=== PATIENT | female | born 1945 | race Caucasian/White ===

== ENCOUNTER 2016-06-17 05:53 | Inpatient (IN) | payer MEDICARE, BC ==
[~2016-06-17] VITALS: Ht 160 cm; Wt 70.3 kg
[~2016-06-17 05:53] MED LIST: AZEL137S3 NS; AZIT250T PO; CEFD250S PO; FENT1PAT17 TD; FLUT12HF2; HYDR28.311; HYDR30CR TP; LIDO; LIDO20SO; LINA145C PO; MAGN296S PO; MONT10TA9; MORP15TA PO; OMEP1CAP18 PO; OMEP1CAP25; OMEP20CA9 PO; ONDA4TAB12 PO; ONDA4TAB7 PO; RANI150T6 PO; TEMA15CA6 PO; TEMA30CA PO; TEMA7.5C PO; VENTOLIN HFA18 GM; [UNRECOGNIZED DRUG - CODE]; [UNRECOGNIZED DRUG - OTHER]
--- NOTE | 2016-06-17 06:19 | PHYS DOC ---
Past Medical History Past Medical History: Diverticulitis, High Cholesterol, Other Additional Past Medical Histor: bowel obstructions, colitis, intestinal/bowel adhesions Past Surgical History: Appendectomy, Cholecystectomy, Hysterectomy, Tonsillectomy, Other Additional Past Surgical Histo: bowel resection,c-spinex2,l-spinex4,breast implants and revision Alcohol Use: None Drug Use: None Adult General Chief Complaint Chief Complaint: ABDOMINAL PAIN HPI HPI Patient is a 71 year old female who presents with pain. She states she's had colon surgeries and this feels like her bowel disruption. So yesterday morning as constant abdominal pain with nausea. She states nothing makes the pain better or worse. She called her primary care doctor last night and then placed a fentanyl patch on. She states she became so nauseated that her took the patch off around 4 AM. She presents to ER with and had 200 g of fentanyl in route. Review of Systems Review of Systems Constitutional: Denies fever or chills [] Eyes: Denies change in visual acuity, redness, or eye pain [] HENT: Denies nasal congestion or sore throat [] Respiratory: Denies cough or shortness of breath [] Cardiovascular: No additional information not addressed in HPI [] GI: Denies bloody stools or diarrhea, positive for abdominal pain and nausea : Denies dysuria or hematuria [] Musculoskeletal: Denies back pain or joint pain [] Integument: Denies rash or skin lesions [] Neurologic: Denies headache, focal weakness or sensory changes [] Endocrine: Denies polyuria or polydipsia [] Current Medications Current Medications Current Medications Medications (Trade) Dose Ordered Sig/[facility] Start Time Stop Time Status Last Admin Dose Admin Iohexol (Omnipaque 300 Mg/ml) 75 ml 1X ONCE 06/17/16 08:00 06/17/16 08:01 DC 06/17/16 08:30 75 ML Morphine Sulfate 4 mg 4 mg PRN Q15MIN PRN 06/17/16 07:15 06/18/16 07:14 06/17/16 09:07 4 MG Ondansetron HCl (Zofran) 4 mg 1X ONCE 06/17/16 07:30 06/17/16 07:31 DC 06/17/16 07:23 4 MG Sodium Chloride (Iv Sodium Chloride 0.9% 1000ml Bag) 1,000 ml @ 1,000 mls/hr 1X ONCE 06/17/16 07:15 06/17/16 08:14 DC 06/17/16 07:24 1,000 MLS/HR Allergies Allergies Allergies Coded Allergies Type Severity Reaction Last Updated Verified adhesive Allergy Intermediate 06/27/15 Yes alprazolam Allergy Intermediate 03/14/16 Yes clonazepam Allergy Intermediate 03/14/16 Yes codeine Allergy Intermediate 06/27/15 Yes diazepam Allergy Intermediate 03/14/16 Yes fluoxetine Allergy Intermediate 03/14/16 Yes lorazepam Allergy Intermediate 03/14/16 Yes Sulfa (Sulfonamide Antibiotics) Allergy Unknown 05/04/16 Yes Physical Exam Physical Exam Constitutional: Well developed, well nourished, no acute distress, non-toxic appearance. [] HENT: Normocephalic, atraumatic, bilateral external ears normal, oropharynx moist, no oral exudates, nose normal. [] Eyes: PERRLA, EOMI, conjunctiva normal, no discharge. [] Neck: Normal range of motion, no tenderness, supple, no stridor. [] Cardiovascular:Heart rate regular rhythm, no murmur [] Lungs & Thorax: Bilateral breath sounds clear to auscultation [] Abdomen: Tender to palpation diffusely with increased pain in the right left upper quadrant, hyperactive bowel sounds, no masses, no pulsatile masses. [] Skin: Warm, dry, no erythema, no rash. [] Back: No tenderness, no CVA tenderness. [] Extremities: No tenderness, no cyanosis, no clubbing, ROM intact, no edema. [] Neurologic: Alert and oriented X 3, normal motor function, normal sensory function, no focal deficits noted. [] Psychologic: Affect normal, judgement normal, mood normal. [] Current Patient Data Vital Signs Vital Signs Date Time Temp Pulse Resp B/P Pulse Ox O2 Delivery O2 Flow Rate FiO2 06/17/16 09:07 12 06/17/16 09:00 68 177/79 99 Room Air 06/17/16 05:55 98.1 98.1 Lab Values Laboratory Tests Test 06/17/16 06:12 06/17/16 06:40 White Blood Count 8.5x10^3/uL (4.0-11.0) Red Blood Count 4.74x10^6/uL (3.50-5.40) Hemoglobin 14.4g/dL (12.0-15.5) Hematocrit 42.5% (36.0-47.0) Mean Corpuscular Volume 90fL (79-100) Mean Corpuscular Hemoglobin 30pg (25-35) Mean Corpuscular Hemoglobin Concent 34g/dL (31-37) Red Cell Distribution Width 13.6% (11.5-14.5) Platelet Count 273x10^3/uL (140-400) Neutrophils (%) (Auto) 52% (31-73) Lymphocytes (%) (Auto) 38% (24-48) Monocytes (%) (Auto) 9% (0-9) Eosinophils (%) (Auto) 1% (0-3) Basophils (%) (Auto) 1% (0-3) Neutrophils # (Auto) 4.4x10^3uL (1.8-7.7) Lymphocytes # (Auto) 3.2x10^3/uL (1.0-4.8) Monocytes # (Auto) 0.8x10^3/uL (0.0-1.1) Eosinophils # (Auto) 0.1x10^3/uL (0.0-0.7) Basophils # (Auto) 0.1x10^3/uL (0.0-0.2) Prothrombin Time 13.5SEC (11.7-14.0) Prothrombin Time INR 1.1 (0.8-1.1) PTT 32SEC (24-38) Sodium Level 142mmol/L (136-145) Potassium Level 3.6mmol/L (3.5-5.1) Chloride Level 105mmol/L (98-107) Carbon Dioxide Level 23mmol/L (21-32) Anion Gap 14 (6-14) Blood Urea Nitrogen 10mg/dL (7-20) Creatinine 0.7mg/dL (0.6-1.0) Estimated GFR (Cockcroft-Gault) 82.0 BUN/Creatinine Ratio 14 (6-20) Glucose Level 111mg/dL (70-99) H Calcium Level 9.6mg/dL (8.5-10.1) Total Bilirubin 0.8mg/dL (0.2-1.0) Aspartate Amino Transferase (AST) 24U/L (15-37) Alanine Aminotransferase (ALT) 23U/L (14-59) Alkaline Phosphatase 109U/L (46-116) Creatine Kinase 48U/L (26-192) Creatine Kinase MB (Mass) < 0.5ng/mL (0.0-3.6) Creatine Kinase MB Relative Index % (0-4) Total Protein 7.4g/dL (6.4-8.2) Albumin 3.9g/dL (3.4-5.0) Albumin/Globulin Ratio 1.1 (1.0-1.7) Lipase 90U/L (73-393) Urine Collection Type Unknown Urine Color Yellow Urine Clarity Clear Urine pH 7.0 Urine Specific [place] 1.020 Urine Protein Negativemg/dL (NEG-TRACE) Urine Glucose (UA) Negativemg/dL (NEG) Urine Ketones (Stick) 40mg/dL (NEG) Urine Blood Trace (NEG) Urine Nitrite Negative (NEG) Urine Bilirubin Negative (NEG) Urine Urobilinogen Dipstick 1.0mg/dL (0.2 mg/dL) Urine Leukocyte Esterase Moderate (NEG) Urine RBC 3-5/HPF (0-2) Urine WBC 5-10/HPF (0-4) Urine Squamous Epithelial Cells Few/LPF Urine Bacteria 0/HPF (0-FEW) Urine Mucus Mod/LPF Laboratory Tests 06/17/16 06:12 Laboratory Tests 06/17/16 06:12 EKG EKG [] Radiology/Procedures Radiology/Procedures [facility] [address] [place], [place] [id number] IMAGING REPORT Signed PATIENT: RIKY ALFORD ACCOUNT: [id number] : 1945 LOCATION: ER AGE: 71 SEX: F EXAM STATUS: REG ER ORD. PHYSICIAN: HAO YORK MD REASON: abd pain PROCEDURE: ABD PELV W/ IV CONTRAST ONLY CT of the abdomen and pelvis with contrast, 06/17/2016: History: Abdominal pain Multidetector CT imaging was performed following an IV bolus injection of iodinated contrast material. No oral contrast material was administered for this exam. Comparison is made to a study from 05/03/2016. The gallbladder is surgically absent. Multiple well-defined low density hepatic lesions are again noted compatible with cysts. The pancreas is unremarkable. The spleen is of normal size. There are small bilateral renal cysts. Scarring is again noted along the posterior aspect of the left kidney. No adrenal abnormality is detected. Aortic calcific plaquing is present without evidence of aneurysm. No abdominal or pelvic adenopathy is seen. The uterus is surgically absent. The bowel loops are not dilated. There is evidence of previous bowel surgery. There are a few scattered colonic diverticula. No paracolonic inflammatory process is seen. No free fluid or free air is evident in the abdomen or pelvis. There as been a previous lower lumbar laminectomy and posterior spinal fusion. IMPRESSION: 1. Hepatic and renal cysts. 2. Mild colonic diverticulosis. 3. No acute abdominal or pelvic abnormality is detected. DICTATED and SIGNED BY: ROBINA BOX MD DATE: 06/17/16 0854 CC: PATRICE CHEN MD; HAO YORK MD ~ Impressions: abdominal pain Course & Med Decision Making Course & Med Decision Making Pertinent Labs and Imaging studies reviewed. (See chart for details) CT scan of her abdomen pelvis and labs are nonacute. She has have high-pitched bowel sounds on physical exam. Spoke with Dr. Chen is agreeable to admitting the patient for pain control. I started D5 1/2 normal saline with 20 meq kcl at 100 and hour and wrote morphine in addition to Zofran. Patient is admitted in stable condition at this time. Dragon Disclaimer Dragon Disclaimer This electronic medical record was generated, in whole or in part, using a voice recognition dictation system. Departure Departure Impression: Primary Impression: Intractable abdominal pain Disposition: ADMITTED INPATIENT Admitting Physician: Patrice Chen Referrals: PATRICE CHEN MD (PCP) HAO YORK MD Jun 17, 2016 06:19
[2016-06-17 06:32] LABS: BASO # 0.1 x10^3/uL (0.0-0.2); BASO % 1 % (0-3); EOS % 1 % (0-3); HEMATOCRIT 42.5 % (36.0-47.0); HEMOGLOBIN 14.4 g/dL (12.0-15.5); LYMPH # 3.2 x10^3/uL (1.0-4.8); LYMPH % 38 % (24-48); MEAN CORPUSCULAR HEMOGLOBIN 30 pg (25-35); MEAN CORPUSCULAR HGB CONC 34 g/dL (31-37); MEAN CORPUSCULAR VOLUME 90 fL (79-100); MONO % 9 % (0-9); NEUT % 52 % (31-73); PLATELET COUNT 273 x10^3/uL (140-400); RED BLOOD COUNT 4.74 x10^6/uL (3.50-5.40); RED CELL DISTRIBUTION WIDTH 13.6 % (11.5-14.5); WHITE BLOOD COUNT 8.5 x10^3/uL (4.0-11.0)
[2016-06-17 06:36] LABS: CALCIUM 9.6 mg/dL (8.5-10.1); CREATININE 0.7 mg/dL (0.6-1.0); POTASSIUM 3.6 mmol/L (3.5-5.1)
[2016-06-17 06:41] LABS: INR 1.1 (0.8-1.1); PROTHROMBIN TIME PATIENT 13.5 SEC (11.7-14.0)
[2016-06-17 06:45] LABS: ALBUMIN 3.9 g/dL (3.4-5.0); ALBUMIN/GLOBULIN RATIO 1.1 (1.0-1.7); TOTAL BILIRUBIN 0.8 mg/dL (0.2-1.0); TOTAL PROTEIN 7.4 g/dL (6.4-8.2)
[2016-06-17 06:52] LABS: CKMB MASS < 0.5 ng/mL (0.0-3.6); CREATINE KINASE 48 U/L (26-192)
[2016-06-17 06:53] LABS: BILIRUBIN,URINE NEGATIVE (NEG); GLUCOSE,URINE NEGATIVE (NEG); NITRITE,URINE NEGATIVE (NEG); PROTEIN,URINE NEGATIVE (NEG-TRACE)
--- NOTE | 2016-06-17 07:10 | RAD ---
Abdomen series with chest, 3 views, 06/17/2016: History: Abdominal pain There are surgical clips and sutures in the abdomen and pelvis. Gas is present in large and small bowel in a nonspecific pattern. No free air is seen in the abdomen. There is no evidence of organomegaly. Scattered vascular calcifications are present. There has been a previous lower lumbar spinal fusion. The heart size is normal. There is mild tortuosity of the thoracic aorta. No pulmonary consolidation is seen. There is no evidence of pleural fluid. IMPRESSION: No acute abdominal abnormality is detected.
[2016-06-17 07:12] LABS: BACTERIA,URINE 0 /HPF (0-FEW); SQUAMOUS EPITHELIAL CELL,UR FEW /LPF
[2016-06-17] MEDS ORDERED: IV NORMAL SALINE 1000ML BAG 1,000 ML IV ONE (07:15)
[2016-06-17] MEDS: MORPHINE SULFATE 4 MG/ML DISP.SYRIN. IV/SQ PRN ×3 (07:23→10:53)
[2016-06-17] MEDS ORDERED: ONDANSETRON PF 4 MG/2 ML VIAL. IV ONE (07:30)
[2016-06-17] MEDS ORDERED: IOHEXOL 300 MG/ML 75 ML VIAL IV ONE (08:00)
--- NOTE | 2016-06-17 08:32 | ACF ---
Admission Forms Criteria ABDOMINAL PAIN Clinical Indications for Admission to Inpatient Care (Place 'X' for any and all applicable criteria): Admission is indicated for ANY ONE of the following(1)(2)(3)(4)(5): [X]I. Inpatient admission required rather than observation care (Also use Abdominal Pain: Observation Care, as appropriate) because of ANY ONE of the following: [X]a) Severe pain requiring acute inpatient management [ ]b) Identification of etiology/finding that requires inpatient care (eg, aortic dissection, free air) [ ]c) Absent bowel sounds with complete ileus(6) [ ]d) Suspected toxic megacolon [ ]e) Severe electrolyte abnormalities requiring inpatient care [ ]f) High fever or infection requiring inpatient admission as indicated by ANY ONE of following(7)(8): [ ] i) Appropriate outpatient or observational care antimicrobial treatment unavailable, not effective, or not feasible [ ] ii) Documented bacteremia [ ] iii) Temperature > 104.9 degrees F (oral) [ ] iv) T >103.1 F (oral) or < 96.8 F(rectal) that does not respond to all emergency treatment measures [ ]g) Signs of intestinal obstruction [B] [ ]h) Hemodynamic instability [ ]i) IV fluid to replace significant ongoing losses (greater than 3 L/m2 per day) (12)(13) [ ]j) Percutaneous or open drainage (eg, abscess, biliary tract ) procedures [ ]k) Parenteral nutrition regimen that must be implemented on inpatient basis [ ]l) Other condition,treatment or monitoring requiring inpatient admission. [ ]II. Peritoneal signs present [ ]III. Surgery needed that cannot be performed on an ambulatory basis. [ ]IV. Evaluation requires patient to not eat or drink for extended period ( eg, more than 24 hours). [ ]V. Contraindications and/or Inappropriate clinical situations for Observational Care in patients with abdominal pain, when ANY ONE of the following is required: [ ]a) Thorough evaluation is required to prevent catastrophic events due to delays in diagnosing (e.g.Mesenteric ischemia) 1,3 [ ]b) Patient with severe pathology or with chronic symptoms unlikely to improve in the ED stay (3) [ ]. General contraindications and/or Inappropriate clinical situations for Observational Care in patients with abdominal pain, when ANY ONE of the following is required: [ ]a) Prediction of prolongation of LOS based on ANY ONE of the following may be considered as a contraindication for observational care 2, 3, 4, 5, 6, 7, 8, 9, 10, 11 [ ]i) Age > 65 yrs. [ ]ii) Patient arriving by ambulance [ ]iii) Patient with high acuity [ ]iv) Patient requiring vital sign monitoring [ ]v) Patient on IV medication [ ]b) Systolic blood pressures 180mmHg 3,12 [ ]c) Patient with altered mental status including delirium and other alteration of consciousness, (3) [ ]d) Patient whose discharge disposition will be to a custodial home or rehabilitation home should not be managed in Emergency Department Observation Unit. CMS rule requires 3 days hospital stay before such placement.3,13 [ ]e) Patient with failure to thrive due to broad array of etiologies 3,16,17 [ ]f) Inability to ambulate 3,14 Extended stay beyond goal length of stay may be needed for(2)(3): [ ]a) Persistent abdominal pain with suspected intra-abdominal process [ ]b) Diagnosed condition requiring continued stay (e.g., pancreatitis, complicated diverticulitis) [ ]c) Surgery (e.g., colectomy) The original [facility] content created by [employer] has been revised. The portions of the content which have been revised are identified through the use of italic text or in bold, and [email or web address] has neither reviewed nor approved the modified material.All other unmodified content is copyright [facility]. Please see references footnoted in the original [facility] edition 2016 Admission Criteria Met?: Yes ASHWINI MCCULLOUGH Jun 17, 2016 08:31
--- NOTE | 2016-06-17 09:04 | RAD ---
CT of the abdomen and pelvis with contrast, 06/17/2016: History: Abdominal pain Multidetector CT imaging was performed following an IV bolus injection of iodinated contrast material. No oral contrast material was administered for this exam. Comparison is made to a study from 05/03/2016. The gallbladder is surgically absent. Multiple well-defined low density hepatic lesions are again noted compatible with cysts. The pancreas is unremarkable. The spleen is of normal size. There are small bilateral renal cysts. Scarring is again noted along the posterior aspect of the left kidney. No adrenal abnormality is detected. Aortic calcific plaquing is present without evidence of aneurysm. No abdominal or pelvic adenopathy is seen. The uterus is surgically absent. The bowel loops are not dilated. There is evidence of previous bowel surgery. There are a few scattered colonic diverticula. No paracolonic inflammatory process is seen. No free fluid or free air is evident in the abdomen or pelvis. There as been a previous lower lumbar laminectomy and posterior spinal fusion. IMPRESSION: 1. Hepatic and renal cysts. 2. Mild colonic diverticulosis. 3. No acute abdominal or pelvic abnormality is detected.
[2016-06-17] MEDS ORDERED: POTASSIUM CL 20MEQ D5-0.45NACL 1,000 ML IV ONE (10:00)
[2016-06-17] MEDS: ONDANSETRON PF 4 MG/2 ML VIAL. IV PRN (10:52)
[2016-06-17 11:30] VITALS: BP 165/68
[2016-06-17] MEDS ORDERED: PROCHLORPERAZINE 10 MG/2 ML VIAL. IV PRN (12:45)
[2016-06-17] MEDS: MORPHINE SULFATE 4 MG/ML DISP.SYRIN. IV PRN ×2 (12:48→19:59)
[2016-06-17 15:00] VITALS: BP 117/63
[2016-06-17 19:00] VITALS: BP 140/63
[2016-06-17 23:00] VITALS: BP 133/67
[2016-06-17] MEDS: POTASSIUM CL 20MEQ D5-0.45NACL 1,000 ML IV SCH (23:22)
[2016-06-18 03:13] VITALS: BP 123/68
[2016-06-18 05:40] LABS: BASO # 0.1 x10^3/uL (0.0-0.2); BASO % 1 % (0-3); EOS % 1 % (0-3); HEMATOCRIT 38.4 % (36.0-47.0); HEMOGLOBIN 12.8 g/dL (12.0-15.5); LYMPH # 2.6 x10^3/uL (1.0-4.8); LYMPH % 35 % (24-48); MEAN CORPUSCULAR HEMOGLOBIN 30 pg (25-35); MEAN CORPUSCULAR HGB CONC 33 g/dL (31-37); MEAN CORPUSCULAR VOLUME 91 fL (79-100); MONO % 10 % (0-9); NEUT % 54 % (31-73); PLATELET COUNT 248 x10^3/uL (140-400); RED BLOOD COUNT 4.24 x10^6/uL (3.50-5.40); RED CELL DISTRIBUTION WIDTH 13.4 % (11.5-14.5); WHITE BLOOD COUNT 7.7 x10^3/uL (4.0-11.0)
[2016-06-18] MEDS: MORPHINE SULFATE 4 MG/ML DISP.SYRIN. IV PRN ×5 (05:54→23:09)
[2016-06-18 06:22] LABS: ALBUMIN 3.3 g/dL (3.4-5.0); ALBUMIN/GLOBULIN RATIO 0.9 (1.0-1.7); CREATININE 0.7 mg/dL (0.6-1.0); TOTAL BILIRUBIN 0.5 mg/dL (0.2-1.0); TOTAL PROTEIN 6.8 g/dL (6.4-8.2)
[2016-06-18 07:00] VITALS: BP 137/79
[2016-06-18] MEDS: ONDANSETRON PF 4 MG/2 ML VIAL. IV PRN ×3 (07:42→23:08)
[2016-06-18] MEDS ORDERED: HYDROCORTISONE 2.5% RECTAL CREAM 30GM TUBE. RC PRN (09:15)
--- NOTE | 2016-06-18 09:17 | PDOC ---
PROGRESS NOTES Subjective Subjective Pt awake and pleasant this am. C/o n/v and abd pain. Pt states she is passing gas this am. Objective Objective Pt awake and alert. NAD at rest. VSS. Afebrile. Lungs CTA bilat. Resp even and unlabored. Heart with RRR. No murmurs. Abdomen soft, nondistended, and tender throughout. BS hypoactive consistent with small bowel obstruction. Vital Signs Date Time Temp Pulse Resp B/P Pulse Ox O2 Delivery O2 Flow Rate FiO2 06/18/16 07:00 97.9 68 20 137/79 99 Room Air 97.9 Intake and Output 06/18/16 07:00 Intake Total 1033 ml Output Total 150 ml Balance 883 ml Intake Oral 0 ml Other 1033 ml Output Emesis 150 ml # Voids 1 Assessment Assessment Problems Medical Problems: (1) Intractable abdominal pain Status: Acute Plan Plan of Care 1. Abdominal pain, n/v secondary to with subsequent dehydration -Hx of multiple abd surgeries with hx x2 of lysis of adhesions. -Suspect partial bowel obstruction -Hopeful obstruction will resolve in next day or 2 without surgical intervention -KUB: No acute abdominal abnormality is detected. -CT: 1. Hepatic and renal cysts. 2. Mild colonic diverticulosis. 3. No acute abdominal or pelvic abnormality is detected. -Pain meds and antiemetics -Hydration per IVF -Pt NPO Med hx significant for: History of diverticulosis. History of peptic ulcer disease. Osteoarthritis. Comment Review of Relevant I have reviewed the following items frances (where applicable) has been applied. Labs Laboratory Tests Test 06/17/16 06:12 06/17/16 06:40 06/18/16 04:50 White Blood Count 8.5x10^3/uL (4.0-11.0) 7.7x10^3/uL (4.0-11.0) Red Blood Count 4.74x10^6/uL (3.50-5.40) 4.24x10^6/uL (3.50-5.40) Hemoglobin 14.4g/dL (12.0-15.5) 12.8g/dL (12.0-15.5) Hematocrit 42.5% (36.0-47.0) 38.4% (36.0-47.0) Mean Corpuscular Volume 90fL (79-100) 91fL (79-100) Mean Corpuscular Hemoglobin 30pg (25-35) 30pg (25-35) Mean Corpuscular Hemoglobin Concent 34g/dL (31-37) 33g/dL (31-37) Red Cell Distribution Width 13.6% (11.5-14.5) 13.4% (11.5-14.5) Platelet Count 273x10^3/uL (140-400) 248x10^3/uL (140-400) Neutrophils (%) (Auto) 52% (31-73) 54% (31-73) Lymphocytes (%) (Auto) 38% (24-48) 35% (24-48) Monocytes (%) (Auto) 9% (0-9) 10% (0-9) Eosinophils (%) (Auto) 1% (0-3) 1% (0-3) Basophils (%) (Auto) 1% (0-3) 1% (0-3) Neutrophils # (Auto) 4.4x10^3uL (1.8-7.7) 4.2x10^3uL (1.8-7.7) Lymphocytes # (Auto) 3.2x10^3/uL (1.0-4.8) 2.6x10^3/uL (1.0-4.8) Monocytes # (Auto) 0.8x10^3/uL (0.0-1.1) 0.7x10^3/uL (0.0-1.1) Eosinophils # (Auto) 0.1x10^3/uL (0.0-0.7) 0.1x10^3/uL (0.0-0.7) Basophils # (Auto) 0.1x10^3/uL (0.0-0.2) 0.1x10^3/uL (0.0-0.2) Prothrombin Time 13.5SEC (11.7-14.0) Prothromb Time International Ratio 1.1 (0.8-1.1) Activated Partial Thromboplast Time 32SEC (24-38) Sodium Level 142mmol/L (136-145) 142mmol/L (136-145) Potassium Level 3.6mmol/L (3.5-5.1) 4.0mmol/L (3.5-5.1) Chloride Level 105mmol/L (98-107) 108mmol/L (98-107) Carbon Dioxide Level 23mmol/L (21-32) 24mmol/L (21-32) Anion Gap 14 (6-14) 10 (6-14) Blood Urea Nitrogen 10mg/dL (7-20) 7mg/dL (7-20) Creatinine 0.7mg/dL (0.6-1.0) 0.7mg/dL (0.6-1.0) Estimated GFR (Cockcroft-Gault) 82.0 82.0 BUN/Creatinine Ratio 14 (6-20) 10 (6-20) Glucose Level 111mg/dL (70-99) 110mg/dL (70-99) Calcium Level 9.6mg/dL (8.5-10.1) 9.0mg/dL (8.5-10.1) Total Bilirubin 0.8mg/dL (0.2-1.0) 0.5mg/dL (0.2-1.0) Aspartate Amino Transf (AST/SGOT) 24U/L (15-37) 17U/L (15-37) Alanine Aminotransferase (ALT/SGPT) 23U/L (14-59) 20U/L (14-59) Alkaline Phosphatase 109U/L (46-116) 102U/L (46-116) Creatine Kinase 48U/L (26-192) Creatine Kinase MB (Mass) < 0.5ng/mL (0.0-3.6) Creatine Kinase MB Relative Index % (0-4) Total Protein 7.4g/dL (6.4-8.2) 6.8g/dL (6.4-8.2) Albumin 3.9g/dL (3.4-5.0) 3.3g/dL (3.4-5.0) Albumin/Globulin Ratio 1.1 (1.0-1.7) 0.9 (1.0-1.7) Lipase 90U/L (73-393) Urine Collection Type Unknown Urine Color Yellow Urine Clarity Clear Urine pH 7.0 Urine Specific [place] 1.020 Urine Protein Negativemg/dL (NEG-TRACE) Urine Glucose (UA) Negativemg/dL (NEG) Urine Ketones (Stick) 40mg/dL (NEG) Urine Blood Trace (NEG) Urine Nitrite Negative (NEG) Urine Bilirubin Negative (NEG) Urine Urobilinogen Dipstick 1.0mg/dL (0.2 mg/dL) Urine Leukocyte Esterase Moderate (NEG) Urine RBC 3-5/HPF (0-2) Urine WBC 5-10/HPF (0-4) Urine Squamous Epithelial Cells Few/LPF Urine Bacteria 0/HPF (0-FEW) Urine Mucus Mod/LPF Laboratory Tests Test 06/18/16 04:50 White Blood Count 7.7x10^3/uL (4.0-11.0) Red Blood Count 4.24x10^6/uL (3.50-5.40) Hemoglobin 12.8g/dL (12.0-15.5) Hematocrit 38.4% (36.0-47.0) Mean Corpuscular Volume 91fL (79-100) Mean Corpuscular Hemoglobin 30pg (25-35) Mean Corpuscular Hemoglobin Concent 33g/dL (31-37) Red Cell Distribution Width 13.4% (11.5-14.5) Platelet Count 248x10^3/uL (140-400) Neutrophils (%) (Auto) 54% (31-73) Lymphocytes (%) (Auto) 35% (24-48) Monocytes (%) (Auto) 10% (0-9) Eosinophils (%) (Auto) 1% (0-3) Basophils (%) (Auto) 1% (0-3) Neutrophils # (Auto) 4.2x10^3uL (1.8-7.7) Lymphocytes # (Auto) 2.6x10^3/uL (1.0-4.8) Monocytes # (Auto) 0.7x10^3/uL (0.0-1.1) Eosinophils # (Auto) 0.1x10^3/uL (0.0-0.7) Basophils # (Auto) 0.1x10^3/uL (0.0-0.2) Sodium Level 142mmol/L (136-145) Potassium Level 4.0mmol/L (3.5-5.1) Chloride Level 108mmol/L (98-107) Carbon Dioxide Level 24mmol/L (21-32) Anion Gap 10 (6-14) Blood Urea Nitrogen 7mg/dL (7-20) Creatinine 0.7mg/dL (0.6-1.0) Estimated GFR (Cockcroft-Gault) 82.0 BUN/Creatinine Ratio 10 (6-20) Glucose Level 110mg/dL (70-99) Calcium Level 9.0mg/dL (8.5-10.1) Total Bilirubin 0.5mg/dL (0.2-1.0) Aspartate Amino Transf (AST/SGOT) 17U/L (15-37) Alanine Aminotransferase (ALT/SGPT) 20U/L (14-59) Alkaline Phosphatase 102U/L (46-116) Total Protein 6.8g/dL (6.4-8.2) Albumin 3.3g/dL (3.4-5.0) Albumin/Globulin Ratio 0.9 (1.0-1.7) Medications Current Medications Morphine Sulfate 4 mg 4 mg PRN Q15MIN PRN IV/SQ PAIN GREATER THAN 3/10 Last administered on 06/17/16 10:53; Start 06/17/16 at 07:15; Stop 06/18/16 at 07:14 ; Status DC Sodium Chloride (Iv Sodium Chloride 0.9% 1000ml Bag) 1,000 ml @ 1,000 mls/hr 1X ONCE IV Last administered on 06/17/16 07:24; Start 06/17/16 at 07:15; Stop 06/17/16 at 08:14; Status DC Ondansetron HCl (Zofran) 4 mg 1X ONCE IV Last administered on 06/17/16 07:23 ; Start 06/17/16 at 07:30; Stop 06/17/16 at 07:31; Status DC Iohexol (Omnipaque 300 Mg/ml) 75 ml 1X ONCE IV Last administered on 06/17/16 08:30; Start 06/17/16 at 08:00; Stop 06/17/16 at 08:01; Status DC Ondansetron HCl (Zofran) 4 mg PRN Q8HRS PRN IV NAUSEA/VOMITING Last administered on 06/18/16 07:42; Start 06/17/16 at 09:45; Stop 06/18/16 at 09:44 Morphine Sulfate 4 mg 4 mg PRN Q2HR PRN IV PAIN Last administered on 06/18/16 05:54; Start 06/17/16 at 09:45; Stop 06/18/16 at 09:44 Potassium Chloride/Dextrose/ Sod Cl (KCl 20 Meq In D5W-1/2 NS) 1,000 ml @ 100 mls/hr 1X ONCE IV Last administered on 06/17/16 10:53; Start 06/17/16 at 10: 00; Stop 06/17/16 at 19:59; Status DC Prochlorperazine Edisylate 10 mg 10 mg PRN Q6HRS PRN IV NAUSEA/VOMITING Last administered on 06/17/16 12:48; Start 06/17/16 at 12:45 Potassium Chloride/Dextrose/ Sod Cl (KCl 20 Meq In D5W-1/2 NS) 1,000 ml @ 100 mls/hr Q10H IV Last administered on 06/17/16 23:22; Start 06/17/16 at 23:00 Active Scripts Active Reported Temazepam 7.5 Mg Capsule 7.5 Mg PO HS PRN Zegerid 20 Mg Capsule (Omeprazole/Sodium Bicarbonate) 1 Each Capsule 1 Each PO DAILY Ventolin Hfa Inhaler (Albuterol Sulfate) 18 Gm Hfa.aer.ad Proctosol-Hc (Hydrocortisone) 28.35 Gm Cream..g. Lidocaine Hcl Viscous (Lidocaine Hcl) 20 Mg/1 Ml Solution Azelastine Hcl 137 Mcg/0.137 Ml Venetie.pump 2 Venetie NS BID Linzess (Linaclotide) 145 Mcg Capsule 145 Mcg PO DAILY Vitals/I & O Vital Sign - Last 24 Hours 06/17/16 06/17/16 06/17/16 06/17/16 09:07 10:00 10:30 10:53 Pulse 69 67 Resp 12 12 B/P 161/99 151/66 Pulse Ox 98 98 06/17/16 06/17/16 06/17/16 06/17/16 11:30 12:26 12:48 15:00 Temp 97.7 96.6 97.7 96.6 Pulse 67 69 Resp 20 20 B/P 165/68 117/63 Pulse Ox 100 92 O2 Delivery Room Air Room Air Room Air Room Air 06/17/16 06/17/16 06/17/16 06/17/16 19:00 19:59 20:00 23:00 Temp 97.5 97.7 97.5 97.7 Pulse 59 74 Resp 20 B/P 140/63 133/67 Pulse Ox 99 92 O2 Delivery Room Air Room Air Room Air Room Air 06/18/16 06/18/16 06/18/16 06/18/16 03:13 05:54 06:40 07:00 Temp 97.9 97.9 97.9 97.9 Pulse 69 68 Resp B/P 123/68 137/79 Pulse Ox 95 95 95 99 O2 Delivery Room Air Room Air Room Air Room Air Intake and Output 06/17/16 06/17/16 06/18/16 15:00 23:00 07:00 Intake Total 0 ml 1033 ml Output Total 150 ml Balance -150 ml 1033 ml PATRICE JONES MD Jun 18, 2016 09:17
[2016-06-18] MEDS: LINACLOTIDE 145 MCG CAPSULE. PO SCH (09:45)
[2016-06-18] MEDS: SODIUM BICARBONATE 650 MG TABLET. PO SCH (09:45)
[2016-06-18] MEDS: PANTOPRAZOLE 40 MG TABLET. PO SCH (09:45)
[2016-06-18] MEDS: POTASSIUM CL 20MEQ D5-0.45NACL 1,000 ML IV SCH ×2 (09:47→19:45)
--- NOTE | 2016-06-18 10:06 | HP ---
ADMIT DATE: 06/17/2016 HISTORY OF PRESENT ILLNESS: This is a 71-year-old female who is well known to me from followup in the clinic as well as multiple hospitalizations in the recent past. The patient presented to the Emergency Room on the date of admission with complaints of intractable abdominal pain, nausea and vomiting. The patient stated that her symptoms began 2 days prior to presenting to the Emergency Room and gradually worsened. The patient did try to control her pain with fentanyl patch at home after contacting me oncreema. The patient stated that the fentanyl patch made her nauseated that she had to remove the patch. Upon examination in the Emergency Room, a KUB was obtained and this revealed no acute abdominal abnormality. A CT of the abdomen was also obtained, which revealed hepatic and renal cyst, mild colonic diverticulitis and no acute abdominal or pelvic abnormality was detected. Laboratory findings revealed a WBC of 7.7, hemoglobin of 12.8. Sodium and potassium were within normal limits. Chloride was mildly elevated at 108. All other labs were relatively within normal limits. A UA was obtained and showed moderate leukocytes; however, no nitrites were detected. The urine also had trace blood. The patient was admitted to the hospital for pain control. PAST MEDICAL HISTORY: The patient has a significant history for recurrent intractable abdominal pain. The patient has undergone lysis x 2 of abdominal adhesions. She is a significant history for gastroesophageal reflux disease, diverticulitis, irritable bowel syndrome, appendectomy, cholecystectomy, surgery for small-bowel obstruction as mentioned above. She also has a history of hysterectomy, oophorectomy, kidney stones, recurrent UTIs, arthritis, back pain, neck pain, previous history of TIA, headaches, anxiety and depression. FAMILY HISTORY: Significant for GERD, cardiac disease, gallbladder disease and Alzheimer's. SOCIAL HISTORY: She does not drink alcohol or use drugs. She is a nonsmoker. MEDICATIONS: Medications were brought with the patient, listed on the computer and have been addressed. ALLERGIES: She is allergic to CODEINE AND ADHESIVES, SULFA, ALPRAZOLAM, CLONAZEPAM, CODEINE, DIAZEPAM, FLUOXETINE, AND LORAZEPAM. REVIEW OF SYSTEMS: As mentioned above. PHYSICAL EXAMINATION: GENERAL: She is a well-developed and well-nourished female, who is anxious occurring throughout the examination this morning due to her abdominal pain. HEENT: Head, eyes, ears, nose and throat are unremarkable. NECK: Supple, without lymphadenopathy or thyromegaly. CHEST: Clear to auscultation and percussion. HEART: Regular rate and rhythm without S3, S4 or murmur. ABDOMEN: Reveals diffusely tenderness with guarding and peritoneal signs and symptoms. Bowel sounds are hypoactive, which is consistent with small-bowel obstruction, no thyromegaly or masses are palpable. EXTREMITIES: Without cyanosis, clubbing or edema. NEUROLOGIC: She is intact. IMPRESSION: Severe abdominal pain with nausea, vomiting, suspect small-bowel obstruction. PLAN: The patient has been admitted. Pain will be controlled with the IV morphine, IV hydration and nausea medicine will be given p.r.n. We will hold off on GI and surgical consult and hopes that the small-bowel obstruction will clear within a few days. The patient will remain n.p.o. during that time. The patient will be monitored, managed and treated appropriately during her hospitalization. PATRICE JONES MD DR: LOYDA/asim JOB#: [id number] / [id number]
[2016-06-18 11:00] VITALS: BP 146/76
[2016-06-18 15:00] VITALS: BP 132/76
[2016-06-18 19:00] VITALS: BP 154/82
[2016-06-18 22:51] VITALS: BP 151/87
[2016-06-18] MEDS: TEMAZEPAM 7.5 MG CAPSULE PO PRN (23:09)
[2016-06-19 03:00] VITALS: BP 111/76
[2016-06-19] MEDS: POTASSIUM CL 20MEQ D5-0.45NACL 1,000 ML IV SCH ×3 (05:00→22:44)
[2016-06-19 07:00] VITALS: BP 118/67
[2016-06-19] MEDS: SODIUM BICARBONATE 650 MG TABLET. PO SCH (08:26)
[2016-06-19] MEDS: PANTOPRAZOLE 40 MG TABLET. PO SCH (08:27)
[2016-06-19] MEDS: LINACLOTIDE 145 MCG CAPSULE. PO SCH (08:27)
--- NOTE | 2016-06-19 09:37 | PDOC ---
PROGRESS NOTES Subjective Subjective Pt awake and pleasant this am. States she had 2 diarrhea stools last evening/ night. States she is beginning to feel better and has an appetite this am. Objective Objective Pt awake and alert. NAD at rest. VSS. Afebrile. Abdomen soft, nondistended, remains tender to palpation throughout. BS+x4. Vital Signs Date Time Temp Pulse Resp B/P Pulse Ox O2 Delivery O2 Flow Rate FiO2 06/19/16 08:00 Room Air 06/19/16 03:00 98.0 67 19 111/76 92 98.0 Intake and Output 06/19/16 07:00 Intake Total 5011 ml Balance 5011 ml Intake Oral 0 ml IV Total 2000 ml Other 3011 ml # Voids 3 Assessment Assessment Problems Medical Problems: (1) Abdominal pain Status: Acute (2) Intractable abdominal pain Status: Acute Plan Plan of Care 1. Abdominal pain, n/v secondary to with subsequent dehydration -Hx of multiple abd surgeries with hx x2 of lysis of adhesions. -Suspect partial bowel obstruction -Hopeful obstruction will resolve in next day or 2 without surgical intervention -KUB: No acute abdominal abnormality is detected. -CT: 1. Hepatic and renal cysts. 2. Mild colonic diverticulosis. 3. No acute abdominal or pelvic abnormality is detected. -Pain meds and antiemetics -Hydration per IVF -Pt NPO, advance diet as tolerated today. Med hx significant for: History of diverticulosis. History of peptic ulcer disease. Osteoarthritis. If pt tolerates diet today, hopeful for Dc this afternoon or tomorrow am. Comment Review of Relevant I have reviewed the following items frances (where applicable) has been applied. Labs Laboratory Tests Test 06/18/16 04:50 White Blood Count 7.7x10^3/uL (4.0-11.0) Red Blood Count 4.24x10^6/uL (3.50-5.40) Hemoglobin 12.8g/dL (12.0-15.5) Hematocrit 38.4% (36.0-47.0) Mean Corpuscular Volume 91fL (79-100) Mean Corpuscular Hemoglobin 30pg (25-35) Mean Corpuscular Hemoglobin Concent 33g/dL (31-37) Red Cell Distribution Width 13.4% (11.5-14.5) Platelet Count 248x10^3/uL (140-400) Neutrophils (%) (Auto) 54% (31-73) Lymphocytes (%) (Auto) 35% (24-48) Monocytes (%) (Auto) 10% (0-9) Eosinophils (%) (Auto) 1% (0-3) Basophils (%) (Auto) 1% (0-3) Neutrophils # (Auto) 4.2x10^3uL (1.8-7.7) Lymphocytes # (Auto) 2.6x10^3/uL (1.0-4.8) Monocytes # (Auto) 0.7x10^3/uL (0.0-1.1) Eosinophils # (Auto) 0.1x10^3/uL (0.0-0.7) Basophils # (Auto) 0.1x10^3/uL (0.0-0.2) Sodium Level 142mmol/L (136-145) Potassium Level 4.0mmol/L (3.5-5.1) Chloride Level 108mmol/L (98-107) Carbon Dioxide Level 24mmol/L (21-32) Anion Gap 10 (6-14) Blood Urea Nitrogen 7mg/dL (7-20) Creatinine 0.7mg/dL (0.6-1.0) Estimated GFR (Cockcroft-Gault) 82.0 BUN/Creatinine Ratio 10 (6-20) Glucose Level 110mg/dL (70-99) Calcium Level 9.0mg/dL (8.5-10.1) Total Bilirubin 0.5mg/dL (0.2-1.0) Aspartate Amino Transf (AST/SGOT) 17U/L (15-37) Alanine Aminotransferase (ALT/SGPT) 20U/L (14-59) Alkaline Phosphatase 102U/L (46-116) Total Protein 6.8g/dL (6.4-8.2) Albumin 3.3g/dL (3.4-5.0) Albumin/Globulin Ratio 0.9 (1.0-1.7) Microbiology 06/17/16 Urine Culture - Final, Complete 06/17/16 Urine Culture Result 1 (MARYLIN) - Final, Complete Medications Current Medications Morphine Sulfate 4 mg 4 mg PRN Q15MIN PRN IV/SQ PAIN GREATER THAN 3/10 Last administered on 06/17/16t 10:53; Start 06/17/16 at 07:15; Stop 06/18/16 at 07:14 ; Status DC Sodium Chloride (Iv Sodium Chloride 0.9% 1000ml Bag) 1,000 ml @ 1,000 mls/hr 1X ONCE IV Last administered on 06/17/16 07:24; Start 06/17/16 at 07:15; Stop 06/17/16 at 08:14; Status DC Ondansetron HCl (Zofran) 4 mg 1X ONCE IV Last administered on 06/17/16 07:23 ; Start 06/17/16 at 07:30; Stop 06/17/16 at 07:31; Status DC Iohexol (Omnipaque 300 Mg/ml) 75 ml 1X ONCE IV Last administered on 06/17/16 08:30; Start 06/17/16 at 08:00; Stop 06/17/16 at 08:01; Status DC Ondansetron HCl (Zofran) 4 mg PRN Q8HRS PRN IV NAUSEA/VOMITING Last administered on 06/18/16 07:42; Start 06/17/16 at 09:45; Stop 06/18/16 at 09:44 ; Status DC Morphine Sulfate 4 mg 4 mg PRN Q2HR PRN IV PAIN Last administered on 06/18/16 05:54; Start 06/17/16 at 09:45; Stop 06/18/16 at 09:44; Status DC Potassium Chloride/Dextrose/ Sod Cl (KCl 20 Meq In D5W-1/2 NS) 1,000 ml @ 100 mls/hr 1X ONCE IV Last administered on 06/17/16 10:53; Start 06/17/16 at 10: 00; Stop 06/17/16 at 19:59; Status DC Prochlorperazine Edisylate 10 mg 10 mg PRN Q6HRS PRN IV NAUSEA/VOMITING Last administered on 06/17/16 12:48; Start 06/17/16 at 12:45 Potassium Chloride/Dextrose/ Sod Cl (KCl 20 Meq In D5W-1/2 NS) 1,000 ml @ 100 mls/hr Q10H IV Last administered on 06/19/16 05:00; Start 06/17/16 at 23:00 Hydrocortisone (Proctosol-Hc) 1 dre PRN BID PRN RC RECTAL PAIN; Start 06/18/16 at 09:15 Linaclotide (Linzess) 145 mcg DAILY PO Last administered on 06/19/16 08:27; Start 06/18/16 at 10:00 Temazepam (Restoril) 7.5 mg PRN QHS PRN PO INSOMNIA Last administered on 23:09; Start 06/18/16 at 09:15 Pantoprazole Sodium (Protonix) 40 mg DAILYAC PO Last administered on 06/19/16 08:27; Start 06/18/16 at 10:00 Sodium Bicarbonate (Sodium Bicarbonate) 1,300 mg DAILY PO Last administered on 06/19/16 08:26; Start 06/18/16 at 10:00 Morphine Sulfate 4 mg PRN Q2HR PRN IV PAIN Last administered on 06/18/16 23:09 ; Start 06/18/16 at 13:45 Ondansetron HCl (Zofran) 4 mg PRN Q6HRS PRN IV NAUSEA/VOMITING Last administered on 06/18/16 23:08; Start 06/18/16 at 13:45 Active Scripts Active Reported Temazepam 7.5 Mg Capsule 7.5 Mg PO HS PRN Zegerid 20 Mg Capsule (Omeprazole/Sodium Bicarbonate) 1 Each Capsule 1 Each PO DAILY Ventolin Hfa Inhaler (Albuterol Sulfate) 18 Gm Hfa.aer.ad Proctosol-Hc (Hydrocortisone) 28.35 Gm Cream..g. Lidocaine Hcl Viscous (Lidocaine Hcl) 20 Mg/1 Ml Solution Azelastine Hcl 137 Mcg/0.137 Ml [place].pump 2 [place] NS BID Linzess (Linaclotide) 145 Mcg Capsule 145 Mcg PO DAILY Vitals/I & O Vital Sign - Last 24 Hours 06/18/16 06/18/16 06/18/16 06/18/16 11:00 13:56 15:00 17:09 Temp 97.7 97.9 97.7 97.9 Pulse 64 69 Resp 20 20 B/P 146/76 132/76 Pulse Ox 95 97 O2 Delivery Room Air Room Air Room Air Room Air 06/18/16 06/18/16 06/18/16 06/18/16 19:00 19:41 20:00 21:22 Temp 98.0 98.0 Pulse 59 Resp 21 18 B/P 154/82 Pulse Ox 100 100 O2 Delivery Room Air Room Air Room Air 06/18/16 06/18/16 06/18/16 06/19/16 22:51 23:09 23:41 03:00 Temp 98.0 98.0 98.0 98.0 Pulse 58 67 Resp B/P 151/87 111/76 Pulse Ox 97 92 O2 Delivery Room Air Room Air Room Air Room Air 06/19/16 08:00 O2 Delivery Room Air Intake and Output 06/18/16 06/18/16 06/19/16 15:00 23:00 07:00 Intake Total 1000 ml 1000 ml 3011 ml Balance 1000 ml 1000 ml 3011 ml PATRICE JONES MD Jun 19, 2016 09:37
[2016-06-19 11:00] VITALS: BP 140/68
[2016-06-19 15:00] VITALS: BP 132/69
[2016-06-19] MEDS: ONDANSETRON PF 4 MG/2 ML VIAL. IV PRN (16:06)
[2016-06-19] MEDS: MORPHINE SULFATE 4 MG/ML DISP.SYRIN. IV PRN ×3 (16:06→22:43)
[2016-06-19 19:00] VITALS: BP 135/80
[2016-06-19] MEDS: TEMAZEPAM 7.5 MG CAPSULE PO PRN (22:43)
[2016-06-19 23:00] VITALS: BP 148/83
[2016-06-20 03:00] VITALS: BP 128/68
[2016-06-20] MEDS: MORPHINE SULFATE 4 MG/ML DISP.SYRIN. IV PRN ×2 (03:20→05:27)
[2016-06-20 07:00] VITALS: BP 141/74
[2016-06-20] MEDS: PANTOPRAZOLE 40 MG TABLET. PO SCH (08:50)
[2016-06-20] MEDS: SODIUM BICARBONATE 650 MG TABLET. PO SCH (08:50)
[2016-06-20] MEDS: LINACLOTIDE 145 MCG CAPSULE. PO SCH (08:50)
--- NOTE | 2016-06-20 09:34 | PDOC ---
PROGRESS NOTES Subjective Subjective Pt awake and pleasant this am. States pain is significantly improved. Pt tolerating meals without increased nausea. Pt states she continues to have loose stools. Objective Objective Pt awake and alert. NAD. VSS. Afebrile. Lungs CTA bilat. Resp even and unlabored. Heart with RRR. No murmurs. Abdomen soft, nondistended, and nontender. BS+x4. Vital Signs Date Time Temp Pulse Resp B/P Pulse Ox O2 Delivery O2 Flow Rate FiO2 06/20/16 08:07 Room Air 06/20/16 07:00 97.7 63 18 141/74 100 97.7 Intake and Output 06/20/16 07:00 Intake Total 2520 ml Output Total 1100 ml Balance 1420 ml Intake Oral 1420 ml IV Total 1100 ml Output Urine Total 1100 ml Assessment Assessment Problems Medical Problems: (1) Abdominal pain Status: Acute (2) Intractable abdominal pain Status: Acute Plan Plan of Care 1. Abdominal pain, n/v secondary to with subsequent dehydration -Hx of multiple abd surgeries with hx x2 of lysis of adhesions. -Suspect partial bowel obstruction -Hopeful obstruction will resolve in next day or 2 without surgical intervention -KUB: No acute abdominal abnormality is detected. -CT: 1. Hepatic and renal cysts. 2. Mild colonic diverticulosis. 3. No acute abdominal or pelvic abnormality is detected. -Pain meds and antiemetics -Hydration per IVF -Pt NPO, advance diet as tolerated 06/19. Pt tolerating regular diet. Med hx significant for: History of diverticulosis. History of peptic ulcer disease. Osteoarthritis. Dc home today. Regular diet. Activity as tolerated. F/u in our office in 2 weeks ([phone]). Comment Review of Relevant I have reviewed the following items frances (where applicable) has been applied. Labs Microbiology 06/17/16 Urine Culture - Final, Complete 06/17/16 Urine Culture Result 1 (MARYLIN) - Final, Complete Medications Current Medications Morphine Sulfate 4 mg 4 mg PRN Q15MIN PRN IV/SQ PAIN GREATER THAN 3/10 Last administered on 06/17/16t 10:53; Start 06/17/16 at 07:15; Stop 06/18/16 at 07:14 ; Status DC Sodium Chloride (Iv Sodium Chloride 0.9% 1000ml Bag) 1,000 ml @ 1,000 mls/hr 1X ONCE IV Last administered on 06/17/16 07:24; Start 06/17/16 at 07:15; Stop 06/17/16 at 08:14; Status DC Ondansetron HCl (Zofran) 4 mg 1X ONCE IV Last administered on 06/17/16 07:23 ; Start 06/17/16 at 07:30; Stop 06/17/16 at 07:31; Status DC Iohexol (Omnipaque 300 Mg/ml) 75 ml 1X ONCE IV Last administered on 06/17/16 08:30; Start 06/17/16 at 08:00; Stop 06/17/16 at 08:01; Status DC Ondansetron HCl (Zofran) 4 mg PRN Q8HRS PRN IV NAUSEA/VOMITING Last administered on 06/18/16 07:42; Start 06/17/16 at 09:45; Stop 06/18/16 at 09:44 ; Status DC Morphine Sulfate 4 mg 4 mg PRN Q2HR PRN IV PAIN Last administered on 06/18/16 05:54; Start 06/17/16 at 09:45; Stop 06/18/16 at 09:44; Status DC Potassium Chloride/Dextrose/ Sod Cl (KCl 20 Meq In D5W-1/2 NS) 1,000 ml @ 100 mls/hr 1X ONCE IV Last administered on 06/17/16 10:53; Start 06/17/16 at 10: 00; Stop 06/17/16 at 19:59; Status DC Prochlorperazine Edisylate 10 mg 10 mg PRN Q6HRS PRN IV NAUSEA/VOMITING Last administered on 06/17/16 12:48; Start 06/17/16 at 12:45 Potassium Chloride/Dextrose/ Sod Cl (KCl 20 Meq In D5W-1/2 NS) 1,000 ml @ 100 mls/hr Q10H IV Last administered on 06/19/16 22:44; Start 06/17/16 at 23:00 Hydrocortisone (Proctosol-Hc) 1 dre PRN BID PRN RC RECTAL PAIN; Start 06/18/16 at 09:15 Linaclotide (Linzess) 145 mcg DAILY PO Last administered on 06/20/16 08:50; Start 06/18/16 at 10:00 Temazepam (Restoril) 7.5 mg PRN QHS PRN PO INSOMNIA Last administered on 22:43; Start 06/18/16 at 09:15 Pantoprazole Sodium (Protonix) 40 mg DAILYAC PO Last administered on 06/20/16 08:50; Start 06/18/16 at 10:00 Sodium Bicarbonate (Sodium Bicarbonate) 1,300 mg DAILY PO Last administered on 06/20/16 08:50; Start 06/18/16 at 10:00 Morphine Sulfate 4 mg PRN Q2HR PRN IV PAIN Last administered on 06/20/16 05:27 ; Start 06/18/16 at 13:45 Ondansetron HCl (Zofran) 4 mg PRN Q6HRS PRN IV NAUSEA/VOMITING Last administered on 06/19/16 16:06; Start 06/18/16 at 13:45 Active Scripts Active Reported Temazepam 7.5 Mg Capsule 7.5 Mg PO HS PRN Zegerid 20 Mg Capsule (Omeprazole/Sodium Bicarbonate) 1 Each Capsule 1 Each PO DAILY Ventolin Hfa Inhaler (Albuterol Sulfate) 18 Gm Hfa.aer.ad Proctosol-Hc (Hydrocortisone) 28.35 Gm Cream..g. Lidocaine Hcl Viscous (Lidocaine Hcl) 20 Mg/1 Ml Solution Azelastine Hcl 137 Mcg/0.137 Ml [place].pump 2 [place] NS BID Linzess (Linaclotide) 145 Mcg Capsule 145 Mcg PO DAILY Vitals/I & O Vital Sign - Last 24 Hours 06/19/16 06/19/16 06/19/16 06/19/16 11:00 15:00 16:06 19:00 Temp 96.8 97.1 98.0 96.8 97.1 98.0 Pulse 63 73 72 Resp 19 19 20 B/P 140/68 132/69 135/80 Pulse Ox 100 100 99 O2 Delivery Room Air Room Air Room Air 06/19/16 06/19/16 06/19/16 06/19/16 20:00 20:28 22:43 23:00 Temp 98.1 98.1 Pulse 67 Resp 18 18 20 B/P 148/83 Pulse Ox 99 O2 Delivery Room Air Room Air Room Air 06/20/16 06/20/16 06/20/16 06/20/16 03:00 03:20 04:05 05:27 Temp 97.7 97.7 Pulse 76 Resp 20 18 18 B/P 128/68 Pulse Ox 98 99 O2 Delivery Room Air Room Air 06/20/16 06/20/16 06/20/16 05:57 07:00 08:07 Temp 97.7 97.7 Pulse 63 Resp 18 18 B/P 141/74 Pulse Ox 100 O2 Delivery Room Air Room Air Room Air Intake and Output 06/19/16 06/19/16 06/20/16 15:00 23:00 07:00 Intake Total 250 ml 2150 ml 120 ml Output Total 1100 ml Balance 250 ml 1050 ml 120 ml APPL,PATRICE Grant MD Jun 20, 2016 09:34
[2016-06-20] MEDS: POTASSIUM CL 20MEQ D5-0.45NACL 1,000 ML IV SCH (11:00)
[2016-06-20 11:51] VITALS: BP 153/76
--- NOTE | 2016-06-20 13:13 | DS ---
DATE OF DISCHARGE: 06/20/2016 DATE OF DISCHARGE: 06/20/2016 PRIMARY DIAGNOSES: 1. Abdominal pain. 2. Small bowel obstruction. HISTORY OF PRESENT ILLNESS: This is a 71-year-old female who is well known to me from followup in the clinic as well as multiple hospitalizations in the recent past. The patient presented to the Emergency Room on the date of admission with complaints of abdominal pain, nausea and vomiting. The patient stated that her symptoms began 2 days prior to presenting to the ER and had gradually worsened. Upon examination in the Emergency Room, a KUB was obtained as well as a CT. Both of these were relatively within normal limits. Laboratory findings were also within normal limits. The patient was admitted to the hospital secondary to her pain level and for further evaluation of the abdominal pain due to the patient's history of requiring lysis of adhesions. SUMMARY OF STAY: Upon admission, the patient was given Zofran for nausea, morphine for pain. She was started on IV fluids. Her home medications were restarted. Within the first 48 hours, the patient began to have loose watery stools in small amounts. Over the next several days, the patient's pain gradually did resolve as she continued to have loose stools. The patient's pain level also began to subside. On 06/19/2016, the patient's diet was advanced and the patient tolerated this fine without increased nausea or vomiting. The patient was discharged home on a regular diet and activity as tolerated. DISCHARGE MEDICATIONS: Listed on the medical record and have been addressed. FOLLOWUP: The patient is to follow up in our clinic within 2 weeks, sooner as needed. The patient stated understanding of the above discharge summary, denied questions and will follow up in our clinic accordingly. PATRICE JONES MD DR: LOYDA/asim JOB#: [id number] / [id number]
[2016-06-20 15:40] VITALS: BP 125/85
== END 2016-06-20 16:45 | disposition home or self-care (01) | DRG 389 ==
LOC: ER 05:53 → 5 NORTH 09:45
PROVIDERS: ADMIT Family Medicine; ATTEND Family Medicine
DX: K56.60 Unspecified intestinal obstruction (principal); K57.32 Diverticulitis of large intestine without perforation or abscess without bleeding; E78.00 Pure hypercholesterolemia, unspecified; K21.9 Gastro-esophageal reflux disease without esophagitis; K58.9 Irritable bowel syndrome, unspecified; M19.90 Unspecified osteoarthritis, unspecified site; N28.1 Cyst of kidney, acquired; E86.0 Dehydration; Z82.0 Family history of epilepsy and other diseases of the nervous system; Z86.73 Personal history of transient ischemic attack (TIA), and cerebral infarction without residual deficits; Z87.440 Personal history of urinary (tract) infections; Z87.442 Personal history of urinary calculi; Z90.49 Acquired absence of other specified parts of digestive tract; Z90.710 Acquired absence of both cervix and uterus; Z98.1 Arthrodesis status; Z98.82 Breast implant status; Z88.2 Allergy status to sulfonamides; Z88.4 Allergy status to anesthetic agent; Z88.5 Allergy status to narcotic agent; Z88.8 Allergy status to other drugs, medicaments and biological substances
CPT/HCPCS: 36415; 74022; 74177; 80053; 81001; 82553; 83690; 85027; 85610; 85730; 87086; 96361; 96374; 96375; 96376; G0379; J0780; J2270; J2405; J7030; Q9967; 99285-25

== ENCOUNTER 2016-09-20 23:42 | Inpatient (IN) | payer MEDICARE, BC ==
[~2016-09-20] VITALS: Ht 160 cm; Wt 66.8 kg
[2016-09-21] MEDS ORDERED: ONDANSETRON PF 4 MG/2 ML VIAL. IV ONE
[2016-09-21] MEDS ORDERED: IV NORMAL SALINE 1000ML BAG 1,000 ML IV ONE
[2016-09-21] MEDS: MORPHINE SULFATE 4 MG/ML DISP.SYRIN. IV/SQ PRN ×7 (00:01→15:08)
[2016-09-21 00:12] LABS: BASO # 0.1 x10^3/uL (0.0-0.2); BASO % 1 % (0-3); EOS % 1 % (0-3); HEMATOCRIT 43.9 % (36.0-47.0); HEMOGLOBIN 14.9 g/dL (12.0-15.5); LYMPH # 3.7 x10^3/uL (1.0-4.8); LYMPH % 38 % (24-48); MEAN CORPUSCULAR HEMOGLOBIN 31 pg (25-35); MEAN CORPUSCULAR HGB CONC 34 g/dL (31-37); MEAN CORPUSCULAR VOLUME 91 fL (79-100); MONO % 9 % (0-9); NEUT % 51 % (31-73); PLATELET COUNT 239 x10^3/uL (140-400); RED BLOOD COUNT 4.82 x10^6/uL (3.50-5.40); WHITE BLOOD COUNT 9.6 x10^3/uL (4.0-11.0)
[2016-09-21 00:30] LABS: CALCIUM 9.6 mg/dL (8.5-10.1); CREATININE 0.7 mg/dL (0.6-1.0); POTASSIUM 3.5 mmol/L (3.5-5.1)
[2016-09-21 00:36] LABS: ALBUMIN 3.9 g/dL (3.4-5.0); TOTAL BILIRUBIN 0.8 mg/dL (0.2-1.0); TOTAL PROTEIN 7.8 g/dL (6.4-8.2)
--- NOTE | 2016-09-21 00:44 | PHYS DOC ---
Past Medical History Past Medical History: Diverticulitis, High Cholesterol, Other Additional Past Medical Histor: bowel obstructions, colitis, intestinal/bowel adhesions Past Surgical History: Appendectomy, Cholecystectomy, Hysterectomy, Tonsillectomy, Other Additional Past Surgical Histo: bowel resection,c-spinex2,l-spinex4,breast implants and revision Alcohol Use: None Drug Use: None Adult General Chief Complaint Chief Complaint: ABDOMINAL PAIN HPI HPI Patient is a 71 year old female who presents with abdominal pain. The patient reports waking from sleep about 30 minutes prior to arrival with severe epigastric & periumbilical abdominal pain associated with inability to have bowel movement or pass gas. Denies fevers/chills, nausea, vomiting, blood in stools, dysuria. history of colon resection for diverticulitis, lysis of adhesions, multiple previous small bowel resections. Total of 13 abdominal surgeries including appendectomy, cholecystectomy, hysterectomy. PCP is Dr. Chen. Review of Systems Review of Systems Constitutional: Denies fever or chills Eyes: Denies change in visual acuity HENT: Denies nasal congestion or sore throat Respiratory: Denies cough or shortness of breath Cardiovascular: Denies chest pain or edema GI: Reports abdominal pain, constipation, denies nausea, vomiting, bloody stools or diarrhea : Denies dysuria or hematuria Musculoskeletal: Denies back pain or joint pain Integument: Denies rash or skin lesions Neurologic: Denies headache, focal weakness or sensory changes Current Medications Current Medications Current Medications Medications (Trade) Dose Ordered Sig/Clinton Start Time Stop Time Status Last Admin Dose Admin Info (Do NOT chart on this entry -- for MONITORING) 1 each PRN DAILY PRN 09/21/16 00:45 09/23/16 00:44 Iohexol (Omnipaque 300 Mg/ml) 75 ml 1X ONCE 09/21/16 00:45 09/21/16 00:46 DC 09/21/16 00:58 75 ML Morphine Sulfate 4 mg 4 mg PRN Q2HR PRN 09/21/16 02:15 09/22/16 02:14 09/21/16 02:40 4 MG Ondansetron HCl (Zofran) 4 mg PRN Q8HRS PRN 09/21/16 02:15 09/22/16 02:14 Sodium Chloride (Iv Sodium Chloride 0.9% 1000ml Bag) 1,000 ml @ 100 mls/hr Q10H 09/21/16 02:15 09/22/16 02:14 Allergies Allergies Allergies Coded Allergies Type Severity Reaction Last Updated Verified Sulfa (Sulfonamide Antibiotics) Allergy Intermediate 08/28/16 Yes adhesive Allergy Intermediate 06/27/15 Yes alprazolam Allergy Intermediate 03/14/16 Yes clonazepam Allergy Intermediate 03/14/16 Yes codeine Allergy Intermediate 06/27/15 Yes diazepam Allergy Intermediate 03/14/16 Yes fluoxetine Allergy Intermediate 03/14/16 Yes lorazepam Allergy Intermediate 03/14/16 Yes Physical Exam Physical Exam Constitutional: Well developed, well nourished, appears to be in pain. HENT: Normocephalic, atraumatic, bilateral external ears normal, oropharynx moist, nose normal. Eyes: conjunctiva normal, no discharge. Neck: supple, no stridor. Cardiovascular: RRR, no murmurs, no edema. Lungs & Thorax: LCTAB, no wheezing, no respiratory distress. Abdomen: hypoactive bowel sounds, soft, moderate diffuse tenderness with very light palpation, no focal tenderness in any quadrant, voluntary guarding & rebound are present, no masses or pulsatile masses, nondistended. Skin: Warm, dry, no erythema, no rash. Back: No CVA tenderness. Extremities: No tenderness, no edema. Neurologic: Alert and oriented X 3, no focal deficits noted. Psychologic: anxious Current Patient Data Vital Signs Vital Signs Date Time Temp Pulse Resp B/P Pulse Ox O2 Delivery O2 Flow Rate FiO2 09/21/16 02:30 68 174/74 98 Room Air 09/20/16 23:47 98.0 22 98.0 Lab Values Laboratory Tests Test 09/20/16 23:59 09/21/16 00:00 White Blood Count 9.6x10^3/uL (4.0-11.0) Red Blood Count 4.82x10^6/uL (3.50-5.40) Hemoglobin 14.9g/dL (12.0-15.5) Hematocrit 43.9% (36.0-47.0) Mean Corpuscular Volume 91fL (79-100) Mean Corpuscular Hemoglobin 31pg (25-35) Mean Corpuscular Hemoglobin Concent 34g/dL (31-37) Red Cell Distribution Width 14.0% (11.5-14.5) Platelet Count 239x10^3/uL (140-400) Neutrophils (%) (Auto) 51% (31-73) Lymphocytes (%) (Auto) 38% (24-48) Monocytes (%) (Auto) 9% (0-9) Eosinophils (%) (Auto) 1% (0-3) Basophils (%) (Auto) 1% (0-3) Neutrophils # (Auto) 4.9x10^3uL (1.8-7.7) Lymphocytes # (Auto) 3.7x10^3/uL (1.0-4.8) Monocytes # (Auto) 0.8x10^3/uL (0.0-1.1) Eosinophils # (Auto) 0.1x10^3/uL (0.0-0.7) Basophils # (Auto) 0.1x10^3/uL (0.0-0.2) Sodium Level 142mmol/L (136-145) Potassium Level 3.5mmol/L (3.5-5.1) Chloride Level 105mmol/L (98-107) Carbon Dioxide Level 24mmol/L (21-32) Anion Gap 13 (6-14) Blood Urea Nitrogen 9mg/dL (7-20) Creatinine 0.7mg/dL (0.6-1.0) Estimated GFR (Cockcroft-Gault) 82.0 BUN/Creatinine Ratio 13 (6-20) Glucose Level 104mg/dL (70-99) H Lactic Acid Level 1.4mmol/L (0.4-2.0) Calcium Level 9.6mg/dL (8.5-10.1) Total Bilirubin 0.8mg/dL (0.2-1.0) Aspartate Amino Transferase (AST) 19U/L (15-37) Alanine Aminotransferase (ALT) 24U/L (14-59) Alkaline Phosphatase 113U/L (46-116) Troponin I Quantitative < 0.017ng/mL (0.000-0.055) Total Protein 7.8g/dL (6.4-8.2) Albumin 3.9g/dL (3.4-5.0) Albumin/Globulin Ratio 1.0 (1.0-1.7) Lipase 86U/L (73-393) Urine Collection Type U cath Urine Color Yellow Urine Clarity Clear Urine pH 6.0 Urine Specific [place] 1.015 Urine Protein Negativemg/dL (NEG-TRACE) Urine Glucose (UA) Negativemg/dL (NEG) Urine Ketones (Stick) 15mg/dL (NEG) Urine Blood Moderate (NEG) Urine Nitrite Negative (NEG) Urine Bilirubin Negative (NEG) Urine Urobilinogen Dipstick 0.2mg/dL (0.2 mg/dL) Urine Leukocyte Esterase Negative (NEG) Urine RBC 11-20/HPF (0-2) Urine WBC 1-4/HPF (0-4) Urine Squamous Epithelial Cells Occ/LPF Urine Bacteria 0/HPF (0-FEW) Urine Mucus Slight/LPF Laboratory Tests 09/20/16 23:59 Laboratory Tests 09/20/16 23:59 EKG EKG interpreted by me: NSR rate 67, no acute ST/T wave changes, normal intervals, PACs, artifact present.[] Radiology/Procedures Radiology/Procedures PROCEDURE: CT ABD PELV W/ IV CONTRST ONLY PROCEDURE CT abdomen and pelvis with IV contrast 09/21/2016. HISTORY Upper abdominal pain since this morning. Prior colon resection. TECHNIQUE CT images were obtained through the abdomen and pelvis using an infusion of 75 milliliters Omnipaque 300. No oral contrast was given. Exposure: One or more of the following individualized dose reduction techniques were utilized for this exam: 1. Automated exposure control. 2. Adjustment of the mA and/or kV according to patient size. 3. Use of iterative reconstruction technique.Exposure: One or more of the following individualized dose reduction techniques were utilized for this exam: 1. Automated exposure control. 2. Adjustment of the mA and/or kV according to patient size. 3. Use of iterative reconstruction technique.Exposure: One or more of the following individualized dose reduction techniques were utilized for this exam: 1. Automated exposure control. 2. Adjustment of the mA and/or kV according to patient size. 3. Use of iterative reconstruction technique.Exposure: One or more of the following individualized dose reduction techniques were utilized for this exam: 1. Automated exposure control. 2. Adjustment of the mA and/or kV according to patient size. 3. Use of iterative reconstruction technique.Exposure: One or more of the following individualized dose reduction techniques were utilized for this exam: 1. Automated exposure control. 2. Adjustment of the mA and/or kV according to patient size. 3. Use of iterative reconstruction technique.Exposure: One or more of the following individualized dose reduction techniques were utilized for this exam: 1. Automated exposure control. 2. Adjustment of the mA and/or kV according to patient size. 3. Use of iterative reconstruction technique.Exposure: One or more of the following individualized dose reduction techniques were utilized for this exam: 1. Automated exposure control. 2. Adjustment of the mA and/or kV according to patient size. 3. Use of iterative reconstruction technique. COMPARISON 08/25/2016. FINDINGS The lung bases are clear. The liver again shows multiple cysts. No new liver lesion is seen. Spleen appears normal. Both kidneys enhance with contrast. Cysts are present bilaterally. There is probably some scarring in the upper left kidney. No solid mass or obstruction is seen. There is still suggestion of mild soft tissue abnormality adjacent to the head of the pancreas. This has not changed appreciably. It is possible there are some tiny cysts along the margin of the pancreas. No retroperitoneal or mesenteric adenopathy is seen. There is no apparent abdominal soft tissue mass or other inflammatory process. There is no evidence of bowel obstruction. Images through the pelvis show no abnormality of the distal ureters or bladder. The bladder was poorly distended. No pelvic or inguinal adenopathy is seen. Postoperative changes are again shown involving the lower lumbar spine. There is no separate pelvic soft tissue mass or inflammatory process. IMPRESSION No apparent change from the prior study. There is still a slightly indistinct appearance at the pancreatic head, and mild inflammation is possible, although similar findings were present previously. Electronically signed by: Carmel Cabral (Sep 21, 2016 01:25:08) DICTATED and SIGNED BY: CARMLE CABRAL Jr, MD DATE: 09/21/16 0125[] Course & Med Decision Making Course & Med Decision Making Pertinent Labs and Imaging studies reviewed. (See chart for details) The patient presents with abdominal pain. Gave IV fluids, zofran, pain medication. She required numerous doses of IV pain medication with only minimal relief of her symptoms. Labs as above, CT shows no acute abnormality, no evidence of bowel obstruction, stable pancreatic inflammation. The patient does not feel well enough to go home, repeatedly asking, "Why does this keep happening to me? I can't go on like this. What can we do to make this stop?" Discussed with Dr. Chen, who agrees to admit to inpatient status. GI consult placed to Dr. Warner. The patient is admitted in stable condition. [] Dragon Disclaimer Dragon Disclaimer This electronic medical record was generated, in whole or in part, using a voice recognition dictation system. Departure Departure Impression: Primary Impression: Intractable abdominal pain Additional Impression: Essential hypertension Disposition: ADMITTED INPATIENT Admitting Physician: Patrice Chen Condition: STABLE Referrals: PATRICE CHEN MD (PCP) Problem Qualifiers DELANO DOMINGUEZ MD Sep 21, 2016 00:44
[2016-09-21] MEDS ORDERED: IOHEXOL 300 MG/ML 75 ML VIAL IV ONE (00:45)
[2016-09-21] MEDS ORDERED: CONTRAST GIVEN MC PRN (00:45)
[2016-09-21 00:47] LABS: BILIRUBIN,URINE NEGATIVE (NEG); GLUCOSE,URINE NEGATIVE (NEG); NITRITE,URINE NEGATIVE (NEG); PROTEIN,URINE NEGATIVE (NEG-TRACE); UROBILINOGEN,URINE 0.2 mg/dL (0.2 mg/dL)
[2016-09-21 01:13] LABS: BACTERIA,URINE 0 /HPF (0-FEW); SQUAMOUS EPITHELIAL CELL,UR OCC /LPF
--- NOTE | 2016-09-21 01:26 | RAD ---
PROCEDURE CT abdomen and pelvis with IV contrast 09/21/2016. HISTORY Upper abdominal pain since this morning. Prior colon resection. TECHNIQUE CT images were obtained through the abdomen and pelvis using an infusion of 75 milliliters Omnipaque 300. No oral contrast was given. Exposure: One or more of the following individualized dose reduction techniques were utilized for this exam: 1. Automated exposure control. 2. Adjustment of the mA and/or kV according to patient size. 3. Use of iterative reconstruction technique.Exposure: One or more of the following individualized dose reduction techniques were utilized for this exam: 1. Automated exposure control. 2. Adjustment of the mA and/or kV according to patient size. 3. Use of iterative reconstruction technique.Exposure: One or more of the following individualized dose reduction techniques were utilized for this exam: 1. Automated exposure control. 2. Adjustment of the mA and/or kV according to patient size. 3. Use of iterative reconstruction technique.Exposure: One or more of the following individualized dose reduction techniques were utilized for this exam: 1. Automated exposure control. 2. Adjustment of the mA and/or kV according to patient size. 3. Use of iterative reconstruction technique.Exposure: One or more of the following individualized dose reduction techniques were utilized for this exam: 1. Automated exposure control. 2. Adjustment of the mA and/or kV according to patient size. 3. Use of iterative reconstruction technique.Exposure: One or more of the following individualized dose reduction techniques were utilized for this exam: 1. Automated exposure control. 2. Adjustment of the mA and/or kV according to patient size. 3. Use of iterative reconstruction technique.Exposure: One or more of the following individualized dose reduction techniques were utilized for this exam: 1. Automated exposure control. 2. Adjustment of the mA and/or kV according to patient size. 3. Use of iterative reconstruction technique. COMPARISON 08/25/2016. FINDINGS The lung bases are clear. The liver again shows multiple cysts. No new liver lesion is seen. Spleen appears normal. Both kidneys enhance with contrast. Cysts are present bilaterally. There is probably some scarring in the upper left kidney. No solid mass or obstruction is seen. There is still suggestion of mild soft tissue abnormality adjacent to the head of the pancreas. This has not changed appreciably. It is possible there are some tiny cysts along the margin of the pancreas. No retroperitoneal or mesenteric adenopathy is seen. There is no apparent abdominal soft tissue mass or other inflammatory process. There is no evidence of bowel obstruction. Images through the pelvis show no abnormality of the distal ureters or bladder. The bladder was poorly distended. No pelvic or inguinal adenopathy is seen. Postoperative changes are again shown involving the lower lumbar spine. There is no separate pelvic soft tissue mass or inflammatory process. IMPRESSION No apparent change from the prior study. There is still a slightly indistinct appearance at the pancreatic head, and mild inflammation is possible, although similar findings were present previously. Electronically signed by: Germain Cabral (Sep 21, 2016 01:25:08)
[2016-09-21] MEDS: MORPHINE SULFATE 4 MG/ML DISP.SYRIN. IV PRN ×4 (02:40→23:45)
--- NOTE | 2016-09-21 03:11 | ACF ---
Admission Forms Criteria ABDOMINAL PAIN Clinical Indications for Admission to Inpatient Care (Place 'X' for any and all applicable criteria): Admission is indicated for ANY ONE of the following(1)(2)(3)(4)(5): [X]I. Inpatient admission required rather than observation care (Also use Abdominal Pain: Observation Care, as appropriate) because of ANY ONE of the following: [X]a) Severe pain requiring acute inpatient management [ ]b) Identification of etiology/finding that requires inpatient care (eg, aortic dissection, free air) [ ]c) Absent bowel sounds with complete ileus(6) [ ]d) Suspected toxic megacolon [ ]e) Severe electrolyte abnormalities requiring inpatient care [ ]f) High fever or infection requiring inpatient admission as indicated by ANY ONE of following(7)(8): [ ] i) Appropriate outpatient or observational care antimicrobial treatment unavailable, not effective, or not feasible [ ] ii) Documented bacteremia [ ] iii) Temperature > 104.9 degrees F (oral) [ ] iv) T >103.1 F (oral) or < 96.8 F(rectal) that does not respond to all emergency treatment measures [ ]g) Signs of intestinal obstruction [B] [ ]h) Hemodynamic instability [ ]i) IV fluid to replace significant ongoing losses (greater than 3 L/m2 per day) (12)(13) [ ]j) Percutaneous or open drainage (eg, abscess, biliary tract ) procedures [ ]k) Parenteral nutrition regimen that must be implemented on inpatient basis [ ]l) Other condition,treatment or monitoring requiring inpatient admission. [ ]II. Peritoneal signs present [ ]III. Surgery needed that cannot be performed on an ambulatory basis. [ ]IV. Evaluation requires patient to not eat or drink for extended period ( eg, more than 24 hours). [ ]V. Contraindications and/or Inappropriate clinical situations for Observational Care in patients with abdominal pain, when ANY ONE of the following is required: [ ]a) Thorough evaluation is required to prevent catastrophic events due to delays in diagnosing (e.g.Mesenteric ischemia) 1,3 [ ]b) Patient with severe pathology or with chronic symptoms unlikely to improve in the ED stay (3) [ ]. General contraindications and/or Inappropriate clinical situations for Observational Care in patients with abdominal pain, when ANY ONE of the following is required: [ ]a) Prediction of prolongation of LOS based on ANY ONE of the following may be considered as a contraindication for observational care 2, 3, 4, 5, 6, 7, 8, 9, 10, 11 [ ]i) Age > 65 yrs. [ ]ii) Patient arriving by ambulance [ ]iii) Patient with high acuity [ ]iv) Patient requiring vital sign monitoring [ ]v) Patient on IV medication [ ]b) Systolic blood pressures 180mmHg 3,12 [ ]c) Patient with altered mental status including delirium and other alteration of consciousness, (3) [ ]d) Patient whose discharge disposition will be to a [facility] home or rehabilitation home should not be managed in Emergency Department Observation Unit. CMS rule requires 3 days hospital stay before such placement.3,13 [ ]e) Patient with failure to thrive due to broad array of etiologies 3,16,17 [ ]f) Inability to ambulate 3,14 Extended stay beyond goal length of stay may be needed for(2)(3): [ ]a) Persistent abdominal pain with suspected intra-abdominal process [ ]b) Diagnosed condition requiring continued stay (e.g., pancreatitis, complicated diverticulitis) [ ]c) Surgery (e.g., colectomy) The original [facility] content created by [email or web address] has been revised. The portions of the content which have been revised are identified through the use of italic text or in bold, and [facility] has neither reviewed nor approved the modified material.All other unmodified content is copyright [email or web address]. Please see references footnoted in the original [facility] edition 2016 Admission Criteria Met?: Yes MARY MUNOZ Sep 21, 2016 03:11
[2016-09-21 03:45] VITALS: BP 166/84
[2016-09-21] MEDS: IV NORMAL SALINE 1000ML BAG 1,000 ML IV SCH ×3 (03:53→23:46)
[2016-09-21] MEDS ORDERED: SIME125C PO (04:07)
[2016-09-21] MEDS ORDERED: OMEP20CA9 PO (04:07)
[2016-09-21] MEDS ORDERED: ASPI81TA9 PO (04:07)
[2016-09-21] MEDS: ONDANSETRON PF 4 MG/2 ML VIAL. IV PRN ×3 (05:14→23:45)
[2016-09-21 07:47] VITALS: BP 126/75
[2016-09-21] MEDS ORDERED: PNEUMOC CONJ VACC 23-VALENT 0.5 ML VIAL. VAX IM ONE (09:00)
--- NOTE | 2016-09-21 10:19 | PDOC ---
GENERAL General: admitted with severe upper abdominal pain and vomiting with same. vomitus brown and will heme test same. multiple admissions for similar symptoms over last several years with only times of improvement following surgery for lysis of adhesions. will ask for GI and surgery opinion and control symptoms best we can. see dictated H&P. Problems: VITAL SIGNS Vital Signs: Vital Signs Date Time Temp Pulse Resp B/P Pulse Ox O2 Delivery O2 Flow Rate FiO2 09/21/16 08:09 98 Room Air 09/21/16 07:47 97.4 74 18 126/75 97.4 I & O I & O Intake and Output 09/21/16 07:00 Intake Total 1000 ml Balance 1000 ml IV Total 1000 ml # Voids 1 ALLERGIES Allergies: Allergies Coded Allergies Type Severity Reaction Last Updated Verified Sulfa (Sulfonamide Antibiotics) Allergy Intermediate 08/28/16 Yes adhesive Allergy Intermediate 06/27/15 Yes alprazolam Allergy Intermediate 03/14/16 Yes clonazepam Allergy Intermediate 03/14/16 Yes codeine Allergy Intermediate 06/27/15 Yes diazepam Allergy Intermediate 03/14/16 Yes fluoxetine Allergy Intermediate 03/14/16 Yes lorazepam Allergy Intermediate 03/14/16 Yes MEDS Medications: Current Medications Medications (Trade) Dose Ordered Sig/[place] Start Time Stop Time Status Last Admin Dose Admin Info (Do NOT chart on this entry -- for MONITORING) 1 each PRN DAILY PRN 09/21/16 00:45 09/23/16 00:44 Iohexol (Omnipaque 300 Mg/ml) 75 ml 1X ONCE 09/21/16 00:45 09/21/16 00:46 DC 09/21/16 00:58 75 ML Morphine Sulfate 4 mg 4 mg PRN Q2HR PRN 09/21/16 02:15 09/22/16 02:14 09/21/16 05:15 4 MG Ondansetron HCl (Zofran) 4 mg PRN Q8HRS PRN 09/21/16 02:15 09/22/16 02:14 09/21/16 05:14 4 MG Pneumococcal Polyvalent Vaccine (Do NOT chart on this placeholder) 1 each 1X ONCE 09/21/16 17:00 09/21/16 17:01 UNV Pneumococcal Polyvalent Vaccine (Pneumovax 23) 0.5 ml ONCE ONCE 09/21/16 09:00 4/23/17 09:01 DC Sodium Chloride (Iv Sodium Chloride 0.9% 1000ml Bag) 1,000 ml @ 100 mls/hr Q10H 09/21/16 02:15 09/22/16 02:14 09/21/16 03:53 100 MLS/HR LAB Lab: Laboratory Tests Test 09/20/16 23:59 09/21/16 00:00 White Blood Count 9.6x10^3/uL (4.0-11.0) Red Blood Count 4.82x10^6/uL (3.50-5.40) Hemoglobin 14.9g/dL (12.0-15.5) Hematocrit 43.9% (36.0-47.0) Mean Corpuscular Volume 91fL (79-100) Mean Corpuscular Hemoglobin 31pg (25-35) Mean Corpuscular Hemoglobin Concent 34g/dL (31-37) Red Cell Distribution Width 14.0% (11.5-14.5) Platelet Count 239x10^3/uL (140-400) Neutrophils (%) (Auto) 51% (31-73) Lymphocytes (%) (Auto) 38% (24-48) Monocytes (%) (Auto) 9% (0-9) Eosinophils (%) (Auto) 1% (0-3) Basophils (%) (Auto) 1% (0-3) Neutrophils # (Auto) 4.9x10^3uL (1.8-7.7) Lymphocytes # (Auto) 3.7x10^3/uL (1.0-4.8) Monocytes # (Auto) 0.8x10^3/uL (0.0-1.1) Eosinophils # (Auto) 0.1x10^3/uL (0.0-0.7) Basophils # (Auto) 0.1x10^3/uL (0.0-0.2) Sodium Level 142mmol/L (136-145) Potassium Level 3.5mmol/L (3.5-5.1) Chloride Level 105mmol/L (98-107) Carbon Dioxide Level 24mmol/L (21-32) Anion Gap 13 (6-14) Blood Urea Nitrogen 9mg/dL (7-20) Creatinine 0.7mg/dL (0.6-1.0) Estimated GFR (Cockcroft-Gault) 82.0 BUN/Creatinine Ratio 13 (6-20) Glucose Level 104mg/dL (70-99) Lactic Acid Level 1.4mmol/L (0.4-2.0) Calcium Level 9.6mg/dL (8.5-10.1) Total Bilirubin 0.8mg/dL (0.2-1.0) Aspartate Amino Transf (AST/SGOT) 19U/L (15-37) Alanine Aminotransferase (ALT/SGPT) 24U/L (14-59) Alkaline Phosphatase 113U/L (46-116) Troponin I Quantitative < 0.017ng/mL (0.000-0.055) Total Protein 7.8g/dL (6.4-8.2) Albumin 3.9g/dL (3.4-5.0) Albumin/Globulin Ratio 1.0 (1.0-1.7) Lipase 86U/L (73-393) Urine Collection Type U cath Urine Color Yellow Urine Clarity Clear Urine pH 6.0 Urine Specific [place] 1.015 Urine Protein Negativemg/dL (NEG-TRACE) Urine Glucose (UA) Negativemg/dL (NEG) Urine Ketones (Stick) 15mg/dL (NEG) Urine Blood Moderate (NEG) Urine Nitrite Negative (NEG) Urine Bilirubin Negative (NEG) Urine Urobilinogen Dipstick 0.2mg/dL (0.2 mg/dL) Urine Leukocyte Esterase Negative (NEG) Urine RBC 11-20/HPF (0-2) Urine WBC 1-4/HPF (0-4) Urine Squamous Epithelial Cells Occ/LPF Urine Bacteria 0/HPF (0-FEW) Urine Mucus Slight/LPF PATRICE JONES MD Sep 21, 2016 10:19
--- NOTE | 2016-09-21 10:29 | EKG ---
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
[2016-09-21 10:30] VITALS: BP 154/84
[2016-09-21 14:44] VITALS: BP 165/99
--- NOTE | 2016-09-21 15:04 | HP ---
ADMIT DATE: CHIEF COMPLAINT AND HISTORY OF PRESENT ILLNESS: This is a 71-year-old white female who is well known to me from followup in the office. The patient was readmitted for severe abdominal pain with vomiting. This is one of her litany of admissions over the last several years with the only improvement being ____ following lysis of adhesions. CT scanning of the abdomen and pelvis did not show evidence of a small-bowel obstruction. At the time of admission, however, she has had multiple episodes of vomiting, some of it brown, and will need to be heme tested for the same. She started on the morning prior to admission with abdominal pain all day long, increasing in the evening with vomiting starting and eventually presenting to the Emergency Room where she was admitted for symptom control. I am going to ask GI and Surgery, both to see her at this point in time and restart the process over again. PAST MEDICAL HISTORY: Remarkable for recurrent small-bowel obstructions, intestinal adhesions, colitis, diverticulitis, hyperlipidemia. PAST SURGICAL HISTORY: She has had a prior appendectomy, cholecystectomy, hysterectomy, tonsillectomy, C-spine surgery, breast implants with revision. SOCIAL HISTORY: She is nonsmoker, nondrinker, does not use drugs. . Lives at home with her . FAMILY HISTORY: Noncontributory ALLERGIES: Include SULFA, ADHESIVES, ALPRAZOLAM, CLONAZEPAM, CODEINE, DIAZEPAM, FLUOXETINE, LORAZEPAM. MEDICATIONS: Brought with the patient, listed on the computer, and have been addressed. REVIEW OF SYSTEMS: As mentioned above. PHYSICAL EXAMINATION: GENERAL: She is a well-developed, well-nourished white female who appears miserable. VITAL SIGNS: Stable. She is afebrile. HEENT: Remarkable for glasses. NECK: Supple, without ____, or thyromegaly. CHEST: Clear to auscultation and percussion. HEART: Regular rate and rhythm without S3, S4, or murmur. ABDOMEN: Reveals primarily upper abdominal tenderness on palpation without rebound, guarding, organomegaly or masses. EXTREMITIES: Without cyanosis, clubbing or edema. NEUROLOGIC: Intact. She was quite anxious, but understandably so, over how miserable she feels. LABORATORY DATA: Initial labs, and again CT abdomen and pelvis were essentially unremarkable. IMPRESSION: Recurrent abdominal pain as discussed above. PLAN: The patient has been admitted. Nausea, pain will be controlled. Surgery, GI will be asked to see the patient and she will be monitored, managed and treated appropriately. PATRICE JONES MD DR: SRIKANTH/asim JOB#: [id number] / [id number]
--- NOTE | 2016-09-21 15:48 | PDOC ---
Provider Note Provider Note #[id number]--dxyuktm. abd pain, etiology unclear. cont npo ivf today. perhaps clears tomorrow if feeling better. PRICE BOYCE MD Sep 21, 2016 15:48
[2016-09-21] MEDS ORDERED: ONDANSETRON PF 4 MG/2 ML VIAL. IV PRN (16:22)
[2016-09-21] MEDS ORDERED: PNEUMOCOCCAL VAX SCREEN BY RX. MC ONE (17:00)
[2016-09-21 17:54] LABS: NEG OBC GOB NEG; POS OBC GOB POS
[2016-09-21 23:00] VITALS: BP 154/84
--- NOTE | 2016-09-21 23:16 | CONS ---
DATE OF CONSULTATION: 09/21/2016 REQUESTING PHYSICIAN: Dr. Patrice Banerjee PRIMARY CARE PHYSICIAN: Dr. Patrice Chen. REASON FOR CONSULTATION: Abdominal pain. HISTORY OF PRESENT ILLNESS: This is a 71-year-old female who is known to the GI service and Dr. Warner for chronic abdominal pain, thought secondary to abdominal adhesions. She was recently discharged from [facility] within the last month. She reports that she takes Linzess 145 mcg p.r.n. for constipation. She has undergone imaging on 09/20/2016, that showed slightly indistinct appearance of her pancreatic head and mild inflammation. Postoperative changes were seen in the abdomen. Her laboratory studies are unrevealing. She reports that she has abdominal pain from adhesions. PAST MEDICAL HISTORY: 1. Anxiety. 2. Constipation. 3. GERD. 4. Hysterectomy. 5. Cholecystectomy. 6. Appendectomy. 7. Partial SBO with adhesiolysis and bowel resection. 8. Sigmoid resection for diverticulitis. 9. C-spine surgery. 10. L-spine surgery. 11. Breast medication. 12. Meckel diverticulectomy. FAMILY MEDICAL HISTORY: Negative. SOCIAL HISTORY: No tobacco, alcohol or IV drug abuse. REVIEW OF SYSTEMS: A 13-point review of systems was done. It is positive as per HPI and otherwise negative. MEDICATIONS: 1. Morphine. 2. Zofran. PHYSICAL EXAMINATION: VITAL SIGNS: Temperature is 97.6, blood pressure is 154/84, heart rate 66. GENERAL: She is a well-developed, well-nourished female, in no apparent distress. HEENT: Oropharynx is clear. CARDIOVASCULAR: S1, S2. LUNGS: Clear. ABDOMEN: Normoactive bowel sounds, soft, diffusely tender to palpation. EXTREMITIES: No edema. NEUROLOGIC: Awake, alert and oriented x 3. LABORATORY DATA: White blood cell count of 9.6 with a hemoglobin of 14, platelets at 239. Chemistries with normal LFTs. Imaging as per HPI. ASSESSMENT AND PLAN: This is likely secondary to her multiple surgeries and she previously apparently has done well after adhesiolysis. I have discussed with her possibly starting on clear liquid diet. I also have discussed seeing pain management. The patient became quite belligerent. She called her and son into the room. The patient and her began arguing and raised their voices. They began to approach me in a threatening manner. At this point, I exited the room. I explained to them that Dr. Warner will return tomorrow to resume care. Thank you for allowing me to participate in the care of this patient. JOSS WARNER MD DR: BYRON/asim JOB#: [id number] / [id number] PATRICE Delgado MD, SCOTT MD
[2016-09-22 03:00] VITALS: BP 141/74
[2016-09-22] MEDS: MORPHINE SULFATE 4 MG/ML DISP.SYRIN. IV PRN ×5 (03:56→21:33)
[2016-09-22] MEDS: ONDANSETRON PF 4 MG/2 ML VIAL. IV PRN ×4 (03:56→21:33)
--- NOTE | 2016-09-22 04:41 | CONS ---
DATE OF CONSULTATION: 09/21/2016 CHIEF COMPLAINT: Abdominal pain. HISTORY OF PRESENT ILLNESS: The patient is a 71-year-old female who presents with abdominal pain that started yesterday morning. She said the pain began in the periumbilical and epigastric region. It became increasingly worse to the point that it was severe, was not relieved with drinking water, was not relieved with walking. In fact, drinking water seemed to exacerbate her pain. Her pain was constant. It was crampy and sharp in nature. At this point, her pain is improved compared to yesterday, but she still remains fairly tender. The pain was associated with nausea and vomiting. She had a very small bowel movement yesterday and she has not passed gas since. Her history is significant for what sounds like a colectomy for diverticulitis at following additional colectomy by Dr. Irving for what sounds like obstructive symptoms and then most recently within the last year and a half, an exploratory surgery with lysis of adhesions. PAST MEDICAL HISTORY: Hyperlipidemia. PAST SURGICAL HISTORY: 1. Colectomy. 2. Additional colectomy surgery. 3. Cholecystectomy. 4. Lysis of adhesions and appendectomy. 5. Hysterectomy. 6. Tonsillectomy. 7. Spine surgery. SOCIAL HISTORY: She is a nonsmoker, nondrinker. She lives with her who is in the room at the time. FAMILY HISTORY: Noncontributory to this illness. ALLERGIES: 1. SULFA. 2. ADHESIVES. 3. ALPRAZOLAM. 4. CLONAZEPAM. 5. CODEINE. 6. DIAZEPAM. 7. FLUOXETINE. 8. LORAZEPAM. HOME MEDICATIONS: Include: 1. Albuterol. 2. Aspirin. 3. Azelastine. 4. Proctosol. 5. Linzess. 4. Omeprazole. 5. Gas-X. 6. Temazepam. REVIEW OF SYSTEMS: CONSTITUTIONAL: No fevers or chills. EYES: No abrupt loss of vision or double vision. EARS, NOSE, MOUTH AND THROAT: No loss of hearing or ringing in her ears. CARDIOVASCULAR: No chest pain. She has occasionally heart palpitations. RESPIRATORY: No cough or shortness of breath. GASTROINTESTINAL: See HPI. GENITOURINARY: No dysuria or hematuria. HEMATOLOGIC: No easy bleeding or bruising. MUSCULOSKELETAL: No new myalgias or arthralgias. 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 DERMATOLOGIC: No new skin rashes or lesions. PSYCHIATRIC: Denies depression or anxiety. NEUROLOGIC: Denies headaches or seizures. PHYSICAL EXAMINATION: VITAL SIGNS: She is afebrile with a pulse of 66, respiratory rate 18, blood pressure 154/84, O2 sat is 100% on room air. GENERAL: This is a well-developed, well-nourished female who is tearful. PSYCHIATRIC: She is anxious, but she is cooperative. NEUROLOGIC: She has no resting tremor. She can move all 4 extremities without difficulty. She is alert and oriented x 3. EYES: Pupils are round and reactive. Sclerae are nonicteric. HENT: Head is atraumatic. Mucous membranes moist. Face symmetric. NECK: Supple without cervical lymphadenopathy, no supraclavicular lymphadenopathy. CARDIOVASCULAR: Palpation of her left radial pulse reveals left radial pulses 2+ with no pedal edema. Regular rate by palpation. ABDOMEN: Soft. Nonspecific generalized mild tenderness. No rebound, no guarding. She is nondistended. DERMATOLOGIC: The exposed portions of her skin are unremarkable. LABORATORY DATA: Reviewed. White count is normal, hemoglobin is normal. Comprehensive metabolic profile was reviewed, essentially unremarkable. Troponins are normal. Lactate is 1.4, which is normal. UA is negative for nitrites and leukocyte esterase and CT scan report shows it to be essentially an unremarkable CT with no change from previous study on 09/21/2016. ASSESSMENT: 1. Abdominal pain, etiology unclear. No obstructive pattern on CT scan. 2. Multiple previous abdominal operations. 3. Hyperlipidemia. PLAN: At this point, the patient is improving. She has no clear indication for an operation. I would continue to keep her n.p.o. and continue IV fluid hydration. If she continues to feel better, I think a trial of clear liquids is reasonable tomorrow. She may require a Gastrografin small bowel follow through if she continues to have abdominal pain without a clear etiology. Dr. Irving will return tomorrow and I will turn her care over to him. PRICE BOYCE MD DR: LEROY/asim JOB#: [id number] / [id number] PATRICE Delgado MD
[2016-09-22 07:00] VITALS: BP 127/58
[2016-09-22] MEDS: IV NORMAL SALINE 1000ML BAG 1,000 ML IV SCH (10:28)
[2016-09-22 11:00] VITALS: BP 149/67
--- NOTE | 2016-09-22 11:17 | PDOC ---
AKUA PINTO BARGE CAPTAIN 09/22/16 1117: SURGICAL PROGRESS NOTE Subjective reports not feeling well appears anxious pain across upper abdomen n/v ok at this time Vital Signs Vital Signs Date Time Temp Pulse Resp B/P Pulse Ox O2 Delivery O2 Flow Rate FiO2 09/22/16 10:22 18 Room Air 09/22/16 07:00 97.8 69 127/58 100 97.8 I&O Intake and Output 09/22/16 07:00 Intake Total 0 ml Output Total 600 ml Balance -600 ml Intake Oral 0 ml Output Emesis 600 ml # Voids 9 General: Alert, Cooperative, Other (anxious ) Abdomen: Soft, Other (tender epigastric) Labs Laboratory Tests Test 09/20/16 23:59 09/21/16 00:00 09/21/16 16:45 White Blood Count 9.6x10^3/uL (4.0-11.0) Red Blood Count 4.82x10^6/uL (3.50-5.40) Hemoglobin 14.9g/dL (12.0-15.5) Hematocrit 43.9% (36.0-47.0) Mean Corpuscular Volume 91fL (79-100) Mean Corpuscular Hemoglobin 31pg (25-35) Mean Corpuscular Hemoglobin Concent 34g/dL (31-37) Red Cell Distribution Width 14.0% (11.5-14.5) Platelet Count 239x10^3/uL (140-400) Neutrophils (%) (Auto) 51% (31-73) Lymphocytes (%) (Auto) 38% (24-48) Monocytes (%) (Auto) 9% (0-9) Eosinophils (%) (Auto) 1% (0-3) Basophils (%) (Auto) 1% (0-3) Neutrophils # (Auto) 4.9x10^3uL (1.8-7.7) Lymphocytes # (Auto) 3.7x10^3/uL (1.0-4.8) Monocytes # (Auto) 0.8x10^3/uL (0.0-1.1) Eosinophils # (Auto) 0.1x10^3/uL (0.0-0.7) Basophils # (Auto) 0.1x10^3/uL (0.0-0.2) Sodium Level 142mmol/L (136-145) Potassium Level 3.5mmol/L (3.5-5.1) Chloride Level 105mmol/L (98-107) Carbon Dioxide Level 24mmol/L (21-32) Anion Gap 13 (6-14) Blood Urea Nitrogen 9mg/dL (7-20) Creatinine 0.7mg/dL (0.6-1.0) Estimated GFR (Cockcroft-Gault) 82.0 BUN/Creatinine Ratio 13 (6-20) Glucose Level 104mg/dL (70-99) Lactic Acid Level 1.4mmol/L (0.4-2.0) Calcium Level 9.6mg/dL (8.5-10.1) Total Bilirubin 0.8mg/dL (0.2-1.0) Aspartate Amino Transf (AST/SGOT) 19U/L (15-37) Alanine Aminotransferase (ALT/SGPT) 24U/L (14-59) Alkaline Phosphatase 113U/L (46-116) Troponin I Quantitative < 0.017ng/mL (0.000-0.055) Total Protein 7.8g/dL (6.4-8.2) Albumin 3.9g/dL (3.4-5.0) Albumin/Globulin Ratio 1.0 (1.0-1.7) Lipase 86U/L (73-393) Urine Collection Type U cath Urine Color Yellow Urine Clarity Clear Urine pH 6.0 Urine Specific [place] 1.015 Urine Protein Negativemg/dL (NEG-TRACE) Urine Glucose (UA) Negativemg/dL (NEG) Urine Ketones (Stick) 15mg/dL (NEG) Urine Blood Moderate (NEG) Urine Nitrite Negative (NEG) Urine Bilirubin Negative (NEG) Urine Urobilinogen Dipstick 0.2mg/dL (0.2 mg/dL) Urine Leukocyte Esterase Negative (NEG) Urine RBC 11-20/HPF (0-2) Urine WBC 1-4/HPF (0-4) Urine Squamous Epithelial Cells Occ/LPF Urine Bacteria 0/HPF (0-FEW) Urine Mucus Slight/LPF Gastric Fluid Occult Blood Negative (NEG) Laboratory Tests Test 09/21/16 16:45 Gastric Fluid Occult Blood Negative (NEG) Problem List Problems Medical Problems: (1) Abdominal pain Status: Acute (2) Essential hypertension Status: Acute (3) Intractable abdominal pain Status: Acute Assessment/Plan abdominal pain no acute findings will review with Dr Mcfadden Problems: YAJAIRA MCFADDEN MD 09/22/16 1125: SURGICAL PROGRESS NOTE Assessment/Plan pt seen and examined son at bedside dry mouth makes speech a little thick no n/v will offer clears d/w Dr Chen Problems: AKUA PINTO APRN Sep 22, 2016 11:17 YAJAIRA MCFADDEN MD Sep 22, 2016 11:25
--- NOTE | 2016-09-22 13:22 | PDOC ---
Subjective: Subjective: Had abd pain overnight - better now. Tolerating clears w/o n/v. No BM in a few days, wants Lizness. Objective: Vital Signs: Vital Signs Date Time Temp Pulse Resp B/P Pulse Ox O2 Delivery O2 Flow Rate FiO2 09/22/16 11:00 97.9 66 18 149/67 97 Room Air 97.9 Labs: Laboratory Tests Test 09/21/16 16:45 Gastric Fluid Occult Blood Negative Imaging: CT A/P 09/21/16 IMPRESSION No apparent change from the prior study. There is still a slightly indistinct appearance at the pancreatic head, and mild inflammation is possible, although similar findings were present previously. PE: GEN: NAD LUNGS: CTAB anteriorly HEART: RRR ABD: NABS, S/ND, epigastric discomfort NEURO/PSYCH: A & O 3, thick speech A/P: Abdominal pain -chronic -extensive surgical history, h/o adhesions -surgery following Constipation -on Linzess 145mcg QD at home (290mcg caused too much cramping) ---> requests this today -previous colonoscopies, h/o colon polyps GERD, n/v -on PPI at home -previous EGDs Abnormal pancreas on multiple CTs - unchanged Anxiety -- Tolerating clears. Will restart Linzess, PPI. Other per Dr. Warner. PANCHO WILSON Sep 22, 2016 13:22
[2016-09-22 15:00] VITALS: BP 131/56
[2016-09-22] MEDS: PANTOPRAZOLE 40 MG TABLET.DR. PO SCH (15:06)
[2016-09-22] MEDS: LINACLOTIDE 145 MCG CAPSULE. PO SCH (15:06)
[2016-09-22 19:00] VITALS: BP 138/79
--- NOTE | 2016-09-22 20:29 | PDOC ---
GENERAL General: vss and afebrile. awake and alert and distraught over recurrent episodes pain. have discussed negative workup to date. last vomiting early this am and heme negative. GI and surgery help appreciated. continue ivf's, pain and nausea control. Problems: VITAL SIGNS Vital Signs: Vital Signs Date Time Temp Pulse Resp B/P Pulse Ox O2 Delivery O2 Flow Rate FiO2 09/22/16 19:00 98.8 78 18 138/79 96 Room Air 98.8 I & O I & O Intake and Output 09/22/16 07:00 Intake Total 0 ml Output Total 600 ml Balance -600 ml Intake Oral 0 ml Output Emesis 600 ml # Voids 9 ALLERGIES Allergies: Allergies Coded Allergies Type Severity Reaction Last Updated Verified Sulfa (Sulfonamide Antibiotics) Allergy Intermediate 08/28/16 Yes adhesive Allergy Intermediate 06/27/15 Yes alprazolam Allergy Intermediate 03/14/16 Yes clonazepam Allergy Intermediate 03/14/16 Yes codeine Allergy Intermediate 06/27/15 Yes diazepam Allergy Intermediate 03/14/16 Yes fluoxetine Allergy Intermediate 03/14/16 Yes lorazepam Allergy Intermediate 03/14/16 Yes MEDS Medications: Current Medications Medications (Trade) Dose Ordered Sig/Clinton Start Time Stop Time Status Last Admin Dose Admin Info (Do NOT chart on this entry -- for MONITORING) 1 each PRN DAILY PRN 09/21/16 00:45 09/23/16 00:44 Iohexol (Omnipaque 300 Mg/ml) 75 ml 1X ONCE 09/21/16 00:45 09/21/16 00:46 DC 09/21/16 00:58 75 ML Linaclotide (Linzess) 145 mcg DAILY07 09/22/16 14:00 09/22/16 15:06 145 MCG Morphine Sulfate 4 mg 4 mg PRN Q2HR PRN 09/21/16 19:30 09/22/16 17:17 4 MG Ondansetron HCl (Zofran) 4 mg PRN Q4HRS PRN 09/21/16 17:15 09/22/16 17:16 4 MG Pantoprazole Sodium (Protonix) 40 mg DAILYAC 09/22/16 14:00 09/22/16 15:06 40 MG Pneumococcal Polyvalent Vaccine (Do NOT chart on this placeholder) 1 each 1X ONCE 09/21/16 17:00 09/21/16 17:01 UNV Pneumococcal Polyvalent Vaccine (Pneumovax 23) 0.5 ml ONCE ONCE 09/21/16 09:00 09/21/16 09:01 DC Sodium Chloride (Iv Sodium Chloride 0.9% 1000ml Bag) 1,000 ml @ 100 mls/hr Q10H 09/22/16 10:30 09/22/16 10:28 100 MLS/HR PATRICE JONES MD Sep 22, 2016 20:29
[2016-09-22 23:00] VITALS: BP 152/57
[2016-09-23] MEDS: IV NORMAL SALINE 1000ML BAG 1,000 ML IV SCH ×2 (00:52→09:29)
[2016-09-23 03:00] VITALS: BP 109/47
[2016-09-23] MEDS: PANTOPRAZOLE 40 MG TABLET.DR. PO SCH (05:46)
[2016-09-23] MEDS: LINACLOTIDE 145 MCG CAPSULE. PO SCH (05:46)
[2016-09-23 07:00] VITALS: BP 129/70
[2016-09-23] MEDS: ONDANSETRON PF 4 MG/2 ML VIAL. IV PRN (09:41)
--- NOTE | 2016-09-23 10:37 | PDOC ---
Objective: Objective: Reviewed w/ RN - wants to eat and drink but c/o nausea, wants emesis basin, no vomiting. Dr. Chen has previously ordered ADAT, Dr. Irving has recommended more along the lines of NPO w/ ice. Vital Signs: Vital Signs Date Time Temp Pulse Resp B/P Pulse Ox O2 Delivery O2 Flow Rate FiO2 09/23/16 08:00 Room Air 09/23/16 03:00 98.2 71 18 109/47 93 98.2 PE: GEN: NAD NEURO/PSYCH: sleeping, did not awaken A/P: Chronic abdominal pain -extensive surgical history, h/o adhesions -surgery following -constipation on Linzess w/ previous colonoscopy -GERD, n/v on PPI w/ previous EGD Anxiety -- Diet per surgery. Continue same per GI. PANCHO WILSON Sep 23, 2016 10:37
[2016-09-23 11:00] VITALS: BP 133/76
--- NOTE | 2016-09-23 14:20 | PDOC ---
SURGICAL PROGRESS NOTE Subjective she wants to eat says she is feeling better really wants home made soup Vital Signs Vital Signs Date Time Temp Pulse Resp B/P Pulse Ox O2 Delivery O2 Flow Rate FiO2 09/23/16 11:00 98.0 64 20 133/76 95 Room Air 98.0 I&O Intake and Output 09/23/16 07:00 Intake Total 1410 ml Balance 1410 ml Intake Oral 410 ml IV Total 1000 ml # Voids 3 General: Alert, Oriented X3, Cooperative, No acute distress Abdomen: Soft, Other (ND, mild tenderness to upper abdomen ) Labs Laboratory Tests Test 09/21/16 16:45 Gastric Fluid Occult Blood Negative (NEG) Problem List Problems Medical Problems: (1) Abdominal pain Status: Acute (2) Essential hypertension Status: Acute (3) Intractable abdominal pain Status: Acute Assessment/Plan try diet Problems: AKUA PINTO APRN Sep 23, 2016 14:20
[2016-09-23] MEDS: MORPHINE SULFATE 4 MG/ML DISP.SYRIN. IV PRN ×2 (14:38→20:02)
[2016-09-23 15:00] VITALS: BP 146/85
[2016-09-23 19:00] VITALS: BP 180/83
--- NOTE | 2016-09-23 20:39 | PDOC ---
GENERAL General: vss and afebrile. awake and alert. feels she is ready to try some feeding with no vomiting overnight. abdomen less tender. will advance diet as tolerated and follow. Problems: VITAL SIGNS Vital Signs: Vital Signs Date Time Temp Pulse Resp B/P Pulse Ox O2 Delivery O2 Flow Rate FiO2 09/23/16 20:02 20 96 Room Air 09/23/16 15:00 98.0 85 146/85 98.0 I & O I & O Intake and Output 09/23/16 07:00 Intake Total 1410 ml Balance 1410 ml Intake Oral 410 ml IV Total 1000 ml # Voids 3 ALLERGIES Allergies: Allergies Coded Allergies Type Severity Reaction Last Updated Verified Sulfa (Sulfonamide Antibiotics) Allergy Intermediate 08/28/16 Yes adhesive Allergy Intermediate 06/27/15 Yes alprazolam Allergy Intermediate 03/14/16 Yes clonazepam Allergy Intermediate 03/14/16 Yes codeine Allergy Intermediate 06/27/15 Yes diazepam Allergy Intermediate 03/14/16 Yes fluoxetine Allergy Intermediate 03/14/16 Yes lorazepam Allergy Intermediate 03/14/16 Yes MEDS Medications: Current Medications Medications (Trade) Dose Ordered Sig/[place] Start Time Stop Time Status Last Admin Dose Admin Info (Do NOT chart on this entry -- for MONITORING) 1 each PRN DAILY PRN 09/21/16 00:45 09/23/16 00:44 DC Iohexol (Omnipaque 300 Mg/ml) 75 ml 1X ONCE 09/21/16 00:45 09/21/16 00:46 DC 09/21/16 00:58 75 ML Linaclotide (Linzess) 145 mcg DAILY07 09/22/16 14:00 09/23/16 05:46 145 MCG Morphine Sulfate 4 mg 4 mg PRN Q2HR PRN 09/21/16 19:30 09/23/16 20:02 4 MG Ondansetron HCl (Zofran) 4 mg PRN Q4HRS PRN 09/21/16 17:15 09/23/16 09:41 4 MG Pantoprazole Sodium (Protonix) 40 mg DAILYAC 09/22/16 14:00 09/23/16 05:46 40 MG Pneumococcal Polyvalent Vaccine (Do NOT chart on this placeholder) 1 each 1X ONCE 09/21/16 17:00 09/21/16 17:01 UNV Pneumococcal Polyvalent Vaccine (Pneumovax 23) 0.5 ml ONCE ONCE 09/21/16 09:00 09/21/16 09:01 DC Sodium Chloride (Iv Sodium Chloride 0.9% 1000ml Bag) 1,000 ml @ 100 mls/hr Q10H 09/22/16 10:30 09/23/16 09:29 100 MLS/HR PATRICE JONES MD Sep 23, 2016 20:39
[2016-09-23 23:00] VITALS: BP 161/75
[2016-09-24] MEDS: MORPHINE SULFATE 4 MG/ML DISP.SYRIN. IV PRN ×6 (01:42→20:57)
[2016-09-24] MEDS: IV NORMAL SALINE 1000ML BAG 1,000 ML IV SCH ×4 (02:30→22:58)
[2016-09-24 03:00] VITALS: BP 168/73
[2016-09-24 07:45] VITALS: BP 140/77
--- NOTE | 2016-09-24 08:21 | PDOC ---
GENERAL General: vss and afebrile. awake and alert. chest clear and heart regular. abdomen with mild diffuse tenderness. crampy pain this am like she needs to have bm but can' t. didn't eat much yesterday so hopefully will do better with same today. Problems: VITAL SIGNS Vital Signs: Vital Signs Date Time Temp Pulse Resp B/P Pulse Ox O2 Delivery O2 Flow Rate FiO2 09/24/16 03:00 97.9 62 18 168/73 96 Room Air 97.9 I & O I & O Intake and Output 09/24/16 06:59 Intake Total 800 ml Balance 800 ml Intake Oral 800 ml # Voids 6 ALLERGIES Allergies: Allergies Coded Allergies Type Severity Reaction Last Updated Verified Sulfa (Sulfonamide Antibiotics) Allergy Intermediate 08/28/16 Yes adhesive Allergy Intermediate 06/27/15 Yes alprazolam Allergy Intermediate 03/14/16 Yes clonazepam Allergy Intermediate 03/14/16 Yes codeine Allergy Intermediate 06/27/15 Yes diazepam Allergy Intermediate 03/14/16 Yes fluoxetine Allergy Intermediate 03/14/16 Yes lorazepam Allergy Intermediate 03/14/16 Yes MEDS Medications: Current Medications Medications (Trade) Dose Ordered Sig/[place] Start Time Stop Time Status Last Admin Dose Admin Info (Do NOT chart on this entry -- for MONITORING) 1 each PRN DAILY PRN 09/21/16 00:45 09/23/16 00:44 DC Iohexol (Omnipaque 300 Mg/ml) 75 ml 1X ONCE 09/21/16 00:45 09/21/16 00:46 DC 09/21/16 00:58 75 ML Linaclotide (Linzess) 145 mcg DAILY07 09/22/16 14:00 09/23/16 05:46 145 MCG Morphine Sulfate 4 mg 4 mg PRN Q2HR PRN 09/21/16 19:30 09/24/16 01:42 4 MG Ondansetron HCl (Zofran) 4 mg PRN Q4HRS PRN 09/21/16 17:15 09/23/16 09:41 4 MG Pantoprazole Sodium (Protonix) 40 mg DAILYAC 09/22/16 14:00 09/23/16 05:46 40 MG Pneumococcal Polyvalent Vaccine (Do NOT chart on this placeholder) 1 each 1X ONCE 09/21/16 17:00 4/23/17 17:01 UNV Pneumococcal Polyvalent Vaccine (Pneumovax 23) 0.5 ml ONCE ONCE 09/21/16 09:00 09/21/16 09:01 DC Sodium Chloride (Iv Sodium Chloride 0.9% 1000ml Bag) 1,000 ml @ 100 mls/hr Q10H 09/22/16 10:30 09/24/16 04:15 100 MLS/HR PATRICE JONES MD Sep 24, 2016 08:21
[2016-09-24] MEDS: LINACLOTIDE 145 MCG CAPSULE. PO SCH (08:41)
[2016-09-24] MEDS: PANTOPRAZOLE 40 MG TABLET.DR. PO SCH (08:42)
--- NOTE | 2016-09-24 10:38 | PDOC ---
SURGICAL PROGRESS NOTE Subjective asking for solid food had small BM this AM after waking up with "colon cramps" up and about in room Vital Signs Vital Signs Date Time Temp Pulse Resp B/P Pulse Ox O2 Delivery O2 Flow Rate FiO2 09/24/16 09:59 98 Room Air 09/24/16 07:45 97.7 60 18 140/77 97.7 I&O Intake and Output 09/24/16 07:00 Intake Total 800 ml Balance 800 ml Intake Oral 800 ml # Voids 6 PATIENT HAS A LUCIO: No General: Alert, Cooperative, No acute distress Abdomen: Soft Problem List Problems Medical Problems: (1) Abdominal pain Status: Acute (2) Essential hypertension Status: Acute (3) Intractable abdominal pain Status: Acute Assessment/Plan abdominal pain uncertain etiology tolerating full liquids, asking for solid food will advance Problems: YAJAIRA MCFADDEN MD Sep 24, 2016 10:38
[2016-09-24 10:47] VITALS: BP 158/89
--- NOTE | 2016-09-24 12:54 | PDOC ---
Subjective: Subjective: "Really bad day." Wants to eat more. Had "colon cramps" earlier, better after passing gas while sitting on toilet. No stool. No vomiting. Doesn't want anything else for constipation. Objective: Vital Signs: Vital Signs Date Time Temp Pulse Resp B/P Pulse Ox O2 Delivery O2 Flow Rate FiO2 09/24/16 11:50 100 Room Air 09/24/16 10:47 97.9 59 18 158/89 97.9 PE: GEN: NAD, smiling LUNGS: CTAB HEART: RRR ABD: BS+, periumbilical tenderness NEURO/PSYCH: A & O 3 OTHER: RN present A/P: Chronic abdominal pain -extensive surgical history, h/o adhesions -surgery following, plans to advance diet -constipation on Linzess w/ previous colonoscopy ---> refuses other treatments -GERD, n/v on PPI w/ previous EGD -- Seems in better spirits, wants to eat more (orders for GI soft), still has pain. ?proceed w/ CTA - will review w/ Dr. Warner. PANCHO WILSON Sep 24, 2016 12:54
[2016-09-24] MEDS: ONDANSETRON PF 4 MG/2 ML VIAL. IV PRN ×2 (14:31→20:57)
[2016-09-24 14:38] VITALS: BP 169/86
[2016-09-24 19:00] VITALS: BP 174/86
[2016-09-24] MEDS ORDERED: hydrOXYzine PAMOATE 25 MG CAPSULE PO PRN (21:30)
[2016-09-24 23:00] VITALS: BP 176/89
[2016-09-25] MEDS: MORPHINE SULFATE 4 MG/ML DISP.SYRIN. IV PRN ×4 (00:29→22:49)
[2016-09-25 03:00] VITALS: BP 155/75
[2016-09-25 07:00] VITALS: BP 152/73
[2016-09-25] MEDS ORDERED: CONTRAST GIVEN MC PRN (07:15)
[2016-09-25] MEDS ORDERED: IOHEXOL 350 MG/ML 100 ML VIAL. IV ONE (07:15)
[2016-09-25] MEDS: IV NORMAL SALINE 1000ML BAG 1,000 ML IV SCH ×2 (08:52→19:56)
--- NOTE | 2016-09-25 09:25 | PDOC ---
SURGICAL PROGRESS NOTE Subjective feeling better than yesterday wanting to eat Vital Signs Vital Signs Date Time Temp Pulse Resp B/P Pulse Ox O2 Delivery O2 Flow Rate FiO2 09/25/16 07:00 98.1 72 16 152/73 92 Room Air 98.1 I&O Intake and Output 09/25/16 06:59 Intake Total 540 ml Output Total 1400 ml Balance -860 ml Intake Oral 540 ml Output Urine Total 1200 ml Emesis 200 ml # Voids 3 General: Alert, Oriented X3, Cooperative, No acute distress Abdomen: Soft, No tenderness Problem List Problems Medical Problems: (1) Abdominal pain Status: Acute (2) Essential hypertension Status: Acute (3) Intractable abdominal pain Status: Acute Assessment/Plan abdominal pain, unknown etiology possible CTA--has not been able to obtain appropriate IV access Problems: AKUA PINTO APRN Sep 25, 2016 09:25
--- NOTE | 2016-09-25 09:26 | PDOC ---
Subjective: Subjective: "Really bad day yesterday." Pain about the same. Reports vomiting x 2 yesterday, no BM. Frustrated w/ NPO currently w/ planned CTA, mouth is dry, wants to eat. Says she didn't know anyone from Dr. Warner's office was seeing her. (We have seen her all week.) Objective: Objective: Per RN - no IV access for CTA. Vital Signs: Vital Signs Date Time Temp Pulse Resp B/P Pulse Ox O2 Delivery O2 Flow Rate FiO2 09/25/16 07:00 98.1 72 16 152/73 92 Room Air 98.1 PE: GEN: NAD LUNGS: CTAB HEART: RRR ABD: tender NEURO/PSYCH: anxious, frustrated A/P: Chronic abdominal pain, n/v -extensive surgical history, h/o adhesions -constipation and GERD, on Linzess and PPI -- Difficult situation. Despite ongoing n/v and pain, asking to eat, continues w/ frustration/anxiety. Will ask anesthesia to try placing IV, will follow. PANCHO WILSON Sep 25, 2016 09:26
[2016-09-25 11:33] VITALS: BP 170/73
[2016-09-25] MEDS: LINACLOTIDE 145 MCG CAPSULE. PO SCH (12:28)
[2016-09-25] MEDS: PANTOPRAZOLE 40 MG TABLET.DR. PO SCH (12:28)
--- NOTE | 2016-09-25 14:57 | PDOC ---
GENERAL General: vss and afebrile. awake and alert. in process of trying to complete cta abdomen with problems with iv access. better this am with an appetite however. exam stable. continue present. Problems: VITAL SIGNS Vital Signs: Vital Signs Date Time Temp Pulse Resp B/P Pulse Ox O2 Delivery O2 Flow Rate FiO2 09/25/16 11:33 97.9 60 16 170/73 95 Room Air 97.9 I & O I & O Intake and Output 09/25/16 07:00 Intake Total 540 ml Output Total 1400 ml Balance -860 ml Intake Oral 540 ml Output Urine Total 1200 ml Emesis 200 ml # Voids 3 ALLERGIES Allergies: Allergies Coded Allergies Type Severity Reaction Last Updated Verified Sulfa (Sulfonamide Antibiotics) Allergy Intermediate 08/28/16 Yes adhesive Allergy Intermediate 06/27/15 Yes alprazolam Allergy Intermediate 03/14/16 Yes clonazepam Allergy Intermediate 03/14/16 Yes codeine Allergy Intermediate 06/27/15 Yes diazepam Allergy Intermediate 03/14/16 Yes fluoxetine Allergy Intermediate 03/14/16 Yes lorazepam Allergy Intermediate 03/14/16 Yes MEDS Medications: Current Medications Medications (Trade) Dose Ordered Sig/[place] Start Time Stop Time Status Last Admin Dose Admin Hydroxyzine Pamoate (Vistaril) 25 mg PRN Q6HRS PRN 09/24/16 21:30 Info (Do NOT chart on this entry -- for MONITORING) 1 each PRN DAILY PRN 09/25/16 07:15 09/27/16 07:14 Iohexol (Omnipaque 300 Mg/ml) 75 ml 1X ONCE 09/21/16 00:45 09/21/16 00:46 DC 09/21/16 00:58 75 ML Iohexol (Omnipaque 350 Mg/ml) 90 ml 1X ONCE 09/25/16 07:15 09/25/16 07:16 DC 09/25/16 12:09 90 ML Linaclotide (Linzess) 145 mcg DAILY07 09/22/16 14:00 09/25/16 12:28 145 MCG Morphine Sulfate 4 mg 4 mg PRN Q2HR PRN 09/21/16 19:30 09/25/16 00:29 4 MG Ondansetron HCl (Zofran) 4 mg PRN Q4HRS PRN 09/21/16 17:15 09/24/16 20:57 4 MG Pantoprazole Sodium (Protonix) 40 mg DAILYAC 09/22/16 14:00 09/25/16 12:28 40 MG Pneumococcal Polyvalent Vaccine (Do NOT chart on this placeholder) 1 each 1X ONCE 09/21/16 17:00 09/21/16 17:01 UNV Pneumococcal Polyvalent Vaccine (Pneumovax 23) 0.5 ml ONCE ONCE 09/21/16 09:00 09/21/16 09:01 DC Sodium Chloride (Iv Sodium Chloride 0.9% 1000ml Bag) 1,000 ml @ 100 mls/hr Q10H 09/22/16 10:30 09/25/16 08:52 100 MLS/HR PATRICE JONES MD Sep 25, 2016 14:57
[2016-09-25 15:38] VITALS: BP 172/91
[2016-09-25 19:00] VITALS: BP 163/90
[2016-09-25 23:00] VITALS: BP 172/82
[2016-09-26] MEDS: MORPHINE SULFATE 4 MG/ML DISP.SYRIN. IV PRN (02:12)
[2016-09-26 03:00] VITALS: BP 146/77
[2016-09-26] MEDS: IV NORMAL SALINE 1000ML BAG 1,000 ML IV SCH (05:30)
[2016-09-26 07:52] VITALS: BP 139/64
[2016-09-26] MEDS: PANTOPRAZOLE 40 MG TABLET.DR. PO SCH (08:01)
[2016-09-26] MEDS: LINACLOTIDE 145 MCG CAPSULE. PO SCH (08:01)
--- NOTE | 2016-09-26 08:07 | PDOC ---
GENERAL General: vss and afebrile. awake and alert and taking po better. abdomen soft and minimal tenderness this am. could go this pm if does well with GI to finish any testing they want today. Problems: VITAL SIGNS Vital Signs: Vital Signs Date Time Temp Pulse Resp B/P Pulse Ox O2 Delivery O2 Flow Rate FiO2 09/26/16 03:00 97.9 69 18 146/77 97 Room Air 97.9 I & O I & O Intake and Output 09/26/16 06:59 Intake Total 1100 ml Balance 1100 ml Intake Oral 100 ml IV Total 1000 ml # Voids 5 ALLERGIES Allergies: Allergies Coded Allergies Type Severity Reaction Last Updated Verified Sulfa (Sulfonamide Antibiotics) Allergy Intermediate 08/28/16 Yes adhesive Allergy Intermediate 06/27/15 Yes alprazolam Allergy Intermediate 03/14/16 Yes clonazepam Allergy Intermediate 03/14/16 Yes codeine Allergy Intermediate 06/27/15 Yes diazepam Allergy Intermediate 03/14/16 Yes fluoxetine Allergy Intermediate 03/14/16 Yes lorazepam Allergy Intermediate 03/14/16 Yes MEDS Medications: Current Medications Medications (Trade) Dose Ordered Sig/[place] Start Time Stop Time Status Last Admin Dose Admin Hydroxyzine Pamoate (Vistaril) 25 mg PRN Q6HRS PRN 09/24/16 21:30 Info (Do NOT chart on this entry -- for MONITORING) 1 each PRN DAILY PRN 09/25/16 07:15 09/27/16 07:14 Iohexol (Omnipaque 300 Mg/ml) 75 ml 1X ONCE 09/21/16 00:45 09/21/16 00:46 DC 09/21/16 00:58 75 ML Iohexol (Omnipaque 350 Mg/ml) 90 ml 1X ONCE 09/25/16 07:15 09/25/16 07:16 DC 09/25/16 12:09 90 ML Linaclotide (Linzess) 145 mcg DAILY07 09/22/16 14:00 09/26/16 08:01 145 MCG Morphine Sulfate 4 mg 4 mg PRN Q2HR PRN 09/21/16 19:30 09/26/16 02:12 4 MG Ondansetron HCl (Zofran) 4 mg PRN Q4HRS PRN 09/21/16 17:15 09/24/16 20:57 4 MG Pantoprazole Sodium (Protonix) 40 mg DAILYAC 4/24/17 14:00 09/26/16 08:01 40 MG Pneumococcal Polyvalent Vaccine (Do NOT chart on this placeholder) 1 each 1X ONCE 09/21/16 17:00 09/21/16 17:01 UNV Pneumococcal Polyvalent Vaccine (Pneumovax 23) 0.5 ml ONCE ONCE 09/21/16 09:00 09/21/16 09:01 DC Sodium Chloride (Iv Sodium Chloride 0.9% 1000ml Bag) 1,000 ml @ 100 mls/hr Q10H 09/22/16 10:30 09/26/16 05:30 100 MLS/HR PATRICE JONES MD Sep 26, 2016 08:07
--- NOTE | 2016-09-26 10:07 | PDOC ---
Subjective: Subjective: Less pain, liquid stools, tolerating PO w/o n/v. Asks what else can be done. Discussed PICC for CTA. Unsure she wants to do CTA. Wants to leave today. Objective: Objective: IV access problematic yesterday - placed by anesthesia, then infiltrated. D/w RN - pt was unhappy, asking to eat. Possible DC today. Vital Signs: Vital Signs Date Time Temp Pulse Resp B/P Pulse Ox O2 Delivery O2 Flow Rate FiO2 09/26/16 08:00 Room Air 09/26/16 07:52 97.9 64 18 139/64 98 97.9 PE: GEN: NAD, nearly empty breakfast tray LUNGS: CTAB HEART: RRR ABD: some epigastric/RUQ discomfort NEURO/PSYCH: A & O 3, less anxious A/P: Chronic abdominal pain, n/v - improved -extensive surgical history, h/o adhesions -constipation and GERD, on Linzess and PPI -- CTA cancelled w/ no IV access, pt requesting to eat yesterday. Unsure she wants to proceed w/ this currently. Okay to DC per GI. PANCHO WILSON Sep 26, 2016 10:07
[2016-09-26 10:40] VITALS: BP 151/86
--- NOTE | 2016-09-26 14:30 | PDOC ---
SURGICAL PROGRESS NOTE Subjective tolerating diet no pain right now plans to go home, she is nervous Vital Signs Vital Signs Date Time Temp Pulse Resp B/P Pulse Ox O2 Delivery O2 Flow Rate FiO2 09/26/16 10:40 97.7 69 18 151/86 98 Room Air 97.7 I&O Intake and Output 09/26/16 07:00 Intake Total 1100 ml Balance 1100 ml Intake Oral 100 ml IV Total 1000 ml # Voids 5 General: Alert, Oriented X3, Cooperative, No acute distress Abdomen: Soft, No tenderness Problem List Problems Medical Problems: (1) Abdominal pain Status: Acute (2) Essential hypertension Status: Acute (3) Intractable abdominal pain Status: Acute Assessment/Plan abdominal pain improved plans to dc home Problems: AKUA PINTO SEED COLLECTOR Sep 26, 2016 14:30
[2016-09-26 14:59] VITALS: BP 180/86
[2016-09-26] MEDS ORDERED: SIMETHICONE 80 MG TAB.CHEW PO PRN (15:15)
[2016-09-26] MEDS ORDERED: LINACLOTIDE 145 MCG CAPSULE. PO SCH (16:00)
[2016-09-26] MEDS ORDERED: ASPIRIN ENTERIC COATED 81 MG TABLET.DR. PO SCH (16:00)
[2016-09-26] MEDS ORDERED: AZELASTINE NASAL SPRAY 30ML BOTTLE. NS SCH (21:00)
[2016-09-27] MEDS ORDERED: NON FORMULARY ITEM (Omeprazole 1 CAP) PO SCH (09:00)
== END 2016-09-26 17:34 | disposition home or self-care (01) | DRG 390 ==
LOC: ER 23:42 → 5 NORTH 09-21 01:48
PROVIDERS: ADMIT Family Medicine; ATTEND Family Medicine
DX: K56.5 Intestinal adhesions [bands] with obstruction (postinfection) (principal); K58.1 Irritable bowel syndrome with constipation; F41.9 Anxiety disorder, unspecified; E78.5 Hyperlipidemia, unspecified; E78.00 Pure hypercholesterolemia, unspecified; G89.29 Other chronic pain; I10 Essential (primary) hypertension; K21.9 Gastro-esophageal reflux disease without esophagitis; Z90.49 Acquired absence of other specified parts of digestive tract; Z86.010 Personal history of colon polyps; Z98.82 Breast implant status; Z88.5 Allergy status to narcotic agent; Z88.2 Allergy status to sulfonamides; Z88.8 Allergy status to other drugs, medicaments and biological substances; Z90.710 Acquired absence of both cervix and uterus
CPT/HCPCS: 36415; 74177; 80053; 81001; 82271; 83605; 83690; 84484; 85027; 93005; 96361; 96374; J2270; J2405; J7030; Q9967; 99285-25

== ENCOUNTER 2017-11-18 00:11 | Emergency (ER) | payer MEDICARE, BC ==
[2017-11-18] MEDS: IV NORMAL SALINE 500ML BAG 500 ML IV (01:26)
[2017-11-18] MEDS: MORPHINE SULFATE 10 MG/ML VIAL. IV (01:27)
[2017-11-18 01:54] LABS: ADD MAN DIFF? NO
[2017-11-18 01:56] LABS: BASO % 0 % (0-3); EOS % 0 % (0-3); HEMATOCRIT 32.9 % (36.0-47.0); HEMOGLOBIN 11.7 g/dL (12.0-15.5); LYMPH # 1.5 x10^3/uL (1.0-4.8); LYMPH % 19 % (24-48); MEAN CORPUSCULAR HEMOGLOBIN 32 pg (25-35); MEAN CORPUSCULAR HGB CONC 36 g/dL (31-37); MEAN CORPUSCULAR VOLUME 90 fL (79-100); MONO # 0.6 x10^3/uL (0.0-1.1); MONO % 7 % (0-9); NEUT # 5.9 x10^3uL (1.8-7.7); NEUT % 74 % (31-73); PLATELET COUNT 203 x10^3/uL (140-400); RED BLOOD COUNT 3.64 x10^6/uL (3.50-5.40); RED CELL DISTRIBUTION WIDTH 13.4 % (11.5-14.5)
[2017-11-18 02:10] LABS: ALBUMIN 2.6 g/dL (3.4-5.0); ALK PHOS 75 U/L (46-116); ALT (SGPT) 17 U/L (14-59); ANION GAP 12 (6-14); AST (SGOT) 13 U/L (15-37); BLOOD UREA NITROGEN 6 mg/dL (7-20); CALCIUM 6.4 mg/dL (8.5-10.1); CARBON DIOXIDE 17 mmol/L (21-32); CHLORIDE 115 mmol/L (98-107); CREATININE 0.5 mg/dL (0.6-1.0); DIRECT BILIRUBIN 0.1 mg/dL (0.0-0.2); GFR 120.6; GLUCOSE 86 mg/dL (70-99); LIPASE 78 U/L (73-393); SODIUM 144 mmol/L (136-145); TOTAL BILIRUBIN 0.5 mg/dL (0.2-1.0); TOTAL PROTEIN 5.4 g/dL (6.4-8.2)
[2017-11-18 02:13] LABS: POTASSIUM 2.6 mmol/L (3.5-5.1)
[2017-11-18 02:45] LABS: BILIRUBIN,URINE NEGATIVE (NEG); CLARITY,URINE CLEAR; COLOR,URINE YELLOW; GLUCOSE,URINE NEGATIVE (NEG); NITRITE,URINE NEGATIVE (NEG); PH,URINE 8.5; PROTEIN,URINE NEGATIVE (NEG-TRACE); UROBILINOGEN,URINE 0.2 mg/dL (0.2 mg/dL)
[2017-11-18] MEDS: PROCHLORPERAZINE 10 MG/2 ML VIAL. IV (02:45)
[2017-11-18] MEDS: diphenhydrAMINE 50 MG/ML VIAL IVP (02:45)
[2017-11-18 03:07] LABS: BACTERIA,URINE 0 /HPF (0-FEW); RBC,URINE OCC /HPF (0-2); SQUAMOUS EPITHELIAL CELL,UR OCC /LPF
[2017-11-18] MEDS: IOHEXOL 300 MG/ML 100ML VIAL. IV (03:09)
[2017-11-18] MEDS ORDERED: CONTRAST GIVEN. MC (03:15)
[2017-11-18] MEDS: POTASSIUM CHLORIDE 20 MEQ/15 ML ORAL LIQUID. PO (05:02)
[2017-11-18] MEDS ORDERED: POTASSIUM CHLORIDE 20 MEQ/15 ML ORAL LIQUID. PO (05:15)
[2017-11-18] MEDS: LIDO:MAALOX 1:1 20 ML SINGLE DOSE. PO (05:26)
== END 2017-11-18 06:20 | disposition home or self-care (01) ==
LOC: ER 00:11
DX: R10.84 Generalized abdominal pain (principal); R11.2 Nausea with vomiting, unspecified; Z90.49 Acquired absence of other specified parts of digestive tract; Z90.710 Acquired absence of both cervix and uterus; Z88.5 Allergy status to narcotic agent; Z88.2 Allergy status to sulfonamides; Z88.8 Allergy status to other drugs, medicaments and biological substances
CPT/HCPCS: 36415; 74177; 80048; 80076; 81001; 83690; 85025; 96361; 96374; 96375; 99285-25; J0780; J1200; J2270; J7040; Q9967

== ENCOUNTER 2020-01-07 17:05 | Emergency (ER) | payer MEDICARE, BC ==
[~2020-01-07] VITALS: Ht 160 cm; Wt 70.0 kg
[~2020-01-07 17:05] MED LIST changes: +ASPI-886 PO; -HYDR28.311; +HYDR28.337; -LINA145C PO; +LINZESS145 MCG PO; -MAGN296S PO; +MAGN296S68 PO; +MONT10TA49; -MONT10TA9; +OMEP20CA16 PO; -OMEP20CA9 PO; +POTA20LI2 PO; +POTA20TA4 PO; +RANI-376 PO; -RANI150T6 PO; +SIME125C PO
[2020-01-07 17:20] VITALS: BP 177/81
[2020-01-07] MEDS ORDERED: MORPHINE SULFATE 10 MG/ML VIAL. IV ONE (17:45)
[2020-01-07] MEDS ORDERED: IV NORMAL SALINE 1000ML BAG 1,000 ML IV ONE (17:45)
[2020-01-07] MEDS ORDERED: ONDANSETRON PF 4 MG/2 ML VIAL. IVP ONE ×2 (17:45→19:45)
[2020-01-07 17:51] LABS: BILIRUBIN,URINE NEGATIVE (NEG); CLARITY,URINE CLEAR; NITRITE,URINE NEGATIVE (NEG); PH,URINE 7.5 (<5.0-8.0); PROTEIN,URINE NEGATIVE (NEG-TRACE); UROBILINOGEN,URINE 0.2 mg/dL (0.2 mg/dL)
--- NOTE | 2020-01-07 17:54 | PHYS DOC ---
Past Medical History Past Medical History: Diverticulitis Additional Past Medical Histor: bowel obstructions, colitis, intestinal/bowel adhesions Past Surgical History: Appendectomy, Cholecystectomy, Colectomy, Hysterectomy, Other Additional Past Surgical Histo: Breast Implants and Removal, Back Surgery Smoking Status: Never Smoker Alcohol Use: None Drug Use: None General Adult EDM: Chief Complaint: ABDOMINAL PAIN HPI: HPI: Patient is a 74 year old female with history of multiple abdominal surgeries and multiple small bowel obstructions who presents to the ED today complaining of 10 out of 10 generalized abdominal pain with nausea and vomiting, symptoms began yesterday. Patient states she believes she has a small bowel obstruction. She reports having coffee-ground stool yesterday. Denies anything specifically exacerbating or relieving her symptoms. Review of Systems: Review of Systems: Constitutional: Denies fever or chills. [] Eyes: Denies change in visual acuity. [] HENT: Denies nasal congestion or sore throat. [] Respiratory: Denies cough or shortness of breath. [] Cardiovascular: Denies chest pain or edema. [] GI: Reports abdominal pain with coffee-ground stools, reports nausea, denies vomiting, bloody stools or diarrhea. [] : Denies dysuria. [] Musculoskeletal: Denies back pain or joint pain. [] Integument: Denies rash. [] Neurologic: Denies headache, focal weakness or sensory changes. [] Psychiatric: Denies depression or anxiety. [] Heart Score: Risk Factors: Risk Factors: DM, Current or recent (<one month) smoker, HTN, HLP, family history of CAD, obesity. Risk Scores: Score 0 - 3: 2.5% MACE over next 6 weeks - Discharge Home Score 4 - 6: 20.3% MACE over next 6 weeks - Admit for Clinical Observation Score 7 - 10: 72.7% MACE over next 6 weeks - Early Invasive Strategies Current Medications: Current Medications Medications (Trade) Dose Ordered Sig/[facility] Start Time Stop Time Status Last Admin Dose Admin Morphine Sulfate (Morphine Sulfate) 5 mg 1X ONCE 01/07/20 17:45 01/07/20 17:46 DC Ondansetron HCl (Zofran) 4 mg 1X ONCE 01/07/20 17:45 01/07/20 17:46 DC Sodium Chloride 1,000 ml @ 1,000 mls/hr 1X ONCE 01/07/20 17:45 01/07/20 18:44 Allergies: Allergies: Allergies Coded Allergies Type Severity Reaction Last Updated Verified Sulfa (Sulfonamide Antibiotics) Allergy Intermediate 08/28/16 Yes adhesive Allergy Intermediate 06/27/15 Yes alprazolam Allergy Intermediate 03/14/16 Yes clonazepam Allergy Intermediate 03/14/16 Yes codeine Allergy Intermediate 06/27/15 Yes diazepam Allergy Intermediate 03/14/16 Yes fluoxetine Allergy Intermediate 03/14/16 Yes lorazepam Allergy Intermediate 03/14/16 Yes Physical Exam: PE: Constitutional: Well developed, well nourished, no acute distress, non-toxic appearance. [] HENT: Normocephalic, atraumatic, bilateral external ears normal, oropharynx moist, no oral exudates, nose normal. [] Eyes: PERRLA, EOMI, conjunctiva normal, no discharge. [] Neck: Normal range of motion, no tenderness, supple, no stridor. [] Cardiovascular:Heart rate regular rhythm, no murmur [] Lungs & Thorax: Bilateral breath sounds clear to auscultation [] Abdomen: Abdomen with multiple scars from previous surgeries, diffuse tenderness throughout the abdomen, no point tenderness to the right upper quadrant or right lower quadrant. No masses, no pulsatile masses. [] Skin: Warm, dry, no erythema, no rash. [] Back: No tenderness, no CVA tenderness. [] Extremities: No tenderness, no cyanosis, no clubbing, ROM intact, no edema. [] Neurologic: Alert and oriented X 3, normal motor function, normal sensory function, no focal deficits noted. [] Psychologic: Flat affect, patient is hysterical, crying out loud EKG: EKG: [] Radiology/Procedures: Radiology/Procedures: []PROCEDURE: CT ABD PELV W/ IV CONTRST ONLY Exam: CT of abdomen and pelvis with contrast INDICATION: Abdominal pain, history of small bowel obstruction TECHNIQUE: Sequential axial images through the abdomen and pelvis obtained following the administration of 75 mL of Omni 300 IV contrast. Sagittal and coronal reformatted images were reconstructed from the axial data and reviewed. Comparisons: 11/18/2017 FINDINGS: Heart size is normal. No pericardial effusion. Visualized lung bases are clear. Usual. Numerous hepatic cystic lesions noted diffusely throughout the liver. Gallbladder surgically absent. Spleen, pancreas and adrenals are unremarkable. Kidneys demonstrate symmetric enhancement. There are several hypoattenuating cystic lesions in the kidneys bilaterally incompletely characterized on this exam. No renal or ureteral calculi are identified. Bladder is distended and appears thin-walled. Uterus is absent. No abnormal adnexal mass. Anastomotic sutures noted at the sigmoid colon. Remainder of the large and small bowel are unremarkable. Appendix is not identified. No free intra-abdominal air or fluid. No obstruction. Abdominal aorta has a normal course and caliber. Abdominal vasculature is patent. No enlarged abdominal lymph nodes are identified. No suspicious osseous lesions or acute fractures. IMPRESSION: 1. Postsurgical changes at the sigmoid colon. No evidence for obstruction. 2. No finding to explain patient's abdominal pain. Exposure: One or more of the following in the visualized dose reduction techniques were utilized for this examination: 1. Automated exposure control 2. Adjustment of the MA and/or KV according to patient size 3. Use of iterative of reconstructive technique Electronically signed by: Samantha Snow MD (01/07/2020 7:19 PM) [id number] DICTATED and SIGNED BY: SAMANTHA SNOW MD DATE: 01/07/201918 Course & Med Decision Making: Course & Med Decision Making Pertinent Labs and Imaging studies reviewed. (See chart for details) This is a 74-year-old female patient presenting to the ED today complaining of generalized abdominal pain and concern she had small bowel obstruction. Patient has history of multiple abdominal surgeries from small bowel obstructions. CBC, CMP, UA negative for any acute findings. CT of the abdomen and pelvic is negative for any acute findings. Pain is well controlled. Discharge to home. Follow-up with primary care doctor as well as general surgery in the course of next week. Dragon Disclaimer: Dragon Disclaimer: This electronic medical record was generated, in whole or in part, using a voice recognition dictation system. Departure Departure Impression: Primary Impression: Abdominal pain Qualified Codes: R10.84 - Generalized abdominal pain Disposition: 01 HOME, SELF-CARE Condition: STABLE Referrals: PATRICE JONES MD (PCP) Follow-up in 1 to 2 weeks MARTIN KIRKPATRICK MD follow up in 1-2 weeks Patient Instructions: Abdominal Pain (Nonspecific) Additional Instructions: You were evaluated in the emergency room for abdominal pain. Your CAT scan of the abdomen and pelvic is negative for any acute findings. Please follow-up with your own doctor in the next 1 to 2 weeks. Also follow-up with a general surgeon in the next 1 to 2 weeks. Justicifation of Admission Dx: Justifications for Admission: Justification of Admission Dx: N/A WELLINGTON BATEMAN APRN Jan 07, 2020 17:54
[2020-01-07 17:55] LABS: BASO # 0.1 x10^3/uL (0.0-0.2); BASO % 1 % (0-3); EOS # 0.1 x10^3/uL (0.0-0.7); EOS % 1 % (0-3); HEMATOCRIT 44.4 % (36.0-47.0); HEMOGLOBIN 15.1 g/dL (12.0-15.5); LYMPH # 2.4 x10^3/uL (1.0-4.8); LYMPH % 24 % (24-48); MEAN CORPUSCULAR HEMOGLOBIN 31 pg (25-35); MEAN CORPUSCULAR HGB CONC 34 g/dL (31-37); MEAN CORPUSCULAR VOLUME 91 fL (79-100); MONO # 0.8 x10^3/uL (0.0-1.1); MONO % 8 % (0-9); NEUT # 6.5 x10^3/uL (1.8-7.7); NEUT % 67 % (31-73); PLATELET COUNT 281 x10^3/uL (140-400); RED BLOOD COUNT 4.85 x10^6/uL (3.50-5.40); RED CELL DISTRIBUTION WIDTH 13.6 % (11.5-14.5); WHITE BLOOD COUNT 9.7 x10^3/uL (4.0-11.0)
[2020-01-07 17:58] LABS: BARBITURATES NEG (NEG); BENZODIAZEPINES NEG (NEG); CANNABINOIDS NEG (NEG); COCAINE NEG (NEG); METHADONE NEG (NEG); OPIATES NEG (NEG); PHENCYCLIDINE NEG (NEG)
[2020-01-07 17:59] LABS: COLOR,URINE STRAW
[2020-01-07 18:00] LABS: SQUAMOUS EPITHELIAL CELL,UR FEW /LPF
[2020-01-07 18:01] LABS: BACTERIA,URINE FEW /HPF (0-FEW); RBC,URINE OCC /HPF (0-2)
[2020-01-07 18:02] LABS: WBC,URINE 0 /HPF (0-4)
[2020-01-07 18:04] LABS: CALCIUM 9.1 mg/dL (8.5-10.1); CREATININE 0.8 mg/dL (0.6-1.0); GFR 69.7
[2020-01-07 18:05] LABS: AMPHETAMINE/METHAMPHETAMINE NEG (NEG)
[2020-01-07 18:10] LABS: ALBUMIN 3.7 g/dL (3.4-5.0); ALBUMIN/GLOBULIN RATIO 0.9 (1.0-1.7); MAGNESIUM 2.1 mg/dL (1.8-2.4); TOTAL BILIRUBIN 0.4 mg/dL (0.2-1.0); TOTAL PROTEIN 7.7 g/dL (6.4-8.2)
[2020-01-07] MEDS ORDERED: HYDROmorphone 2 MG/ML VIAL IV ONE ×2 (18:15→19:45)
[2020-01-07] MEDS ORDERED: CONTRAST GIVEN. MC PRN (18:30)
[2020-01-07] MEDS ORDERED: IOHEXOL 300 MG/ML 100ML VIAL. IV ONE (18:30)
--- NOTE | 2020-01-07 19:22 | RAD ---
Exam: CT of abdomen and pelvis with contrast INDICATION: Abdominal pain, history of small bowel obstruction TECHNIQUE: Sequential axial images through the abdomen and pelvis obtained following the administration of 75 mL of Omni 300 IV contrast. Sagittal and coronal reformatted images were reconstructed from the axial data and reviewed. Comparisons: 11/18/2017 FINDINGS: Heart size is normal. No pericardial effusion. Visualized lung bases are clear. Usual. Numerous hepatic cystic lesions noted diffusely throughout the liver. Gallbladder surgically absent. Spleen, pancreas and adrenals are unremarkable. Kidneys demonstrate symmetric enhancement. There are several hypoattenuating cystic lesions in the kidneys bilaterally incompletely characterized on this exam. No renal or ureteral calculi are identified. Bladder is distended and appears thin-walled. Uterus is absent. No abnormal adnexal mass. Anastomotic sutures noted at the sigmoid colon. Remainder of the large and small bowel are unremarkable. Appendix is not identified. No free intra-abdominal air or fluid. No obstruction. Abdominal aorta has a normal course and caliber. Abdominal vasculature is patent. No enlarged abdominal lymph nodes are identified. No suspicious osseous lesions or acute fractures. IMPRESSION: 1. Postsurgical changes at the sigmoid colon. No evidence for obstruction. 2. No finding to explain patient's abdominal pain. Exposure: One or more of the following in the visualized dose reduction techniques were utilized for this examination: 1. Automated exposure control 2. Adjustment of the MA and/or KV according to patient size 3. Use of iterative of reconstructive technique Electronically signed by: Samantha Lofton MD (01/07/2020 7:19 PM) [id number]
== END 2020-01-07 20:15 | disposition home or self-care (01) ==
LOC: ER 17:05
DX: R10.84 Generalized abdominal pain (principal); R11.2 Nausea with vomiting, unspecified; Z90.49 Acquired absence of other specified parts of digestive tract; Z90.89 Acquired absence of other organs; Z90.710 Acquired absence of both cervix and uterus; Z88.2 Allergy status to sulfonamides; Z88.5 Allergy status to narcotic agent; Z88.8 Allergy status to other drugs, medicaments and biological substances
CPT/HCPCS: 36415; 74177; 80053; 80307; 81001; 83690; 83735; 85025; 96361; 96374; 96375; 96376; 99285; G0480; J1170; J2270; J2405; J7030; Q9967

== ENCOUNTER → 2021-01-23 | Outpatient (CLI) | payer MEDICARE, BC ==
[~2021-01-23] MED LIST changes: +REGADENOSON 0.4 MG/5 ML DISP.SYRIN. IV ONE
--- NOTE | 2021-01-23 21:47 | CARD ---
MR#: [id number] Date of Study: 01/23/2021 Ordering Physician: CARMEL CHAMPION, Referring Physician: CARMEL CHAMPION, Tech: Estella Medina, [facility] APPROVED REPORT EXAM: Two-dimensional and M-mode echocardiogram with Doppler and color Doppler. Other Information Quality : AverageHR: 58bpm Technically limited study due to COPD INDICATION COPD Murmur RISK FACTORS Asthma 2D DIMENSIONS RVDd3.3 (2.9-3.5cm)Left Atrium(2D)2.7 (1.6-4.0cm) IVSd0.9 (0.7-1.1cm)Aortic Root(2D)3.1 (2.0-3.7cm) LVDd4.5 (3.9-5.9cm)LVOT Diameter2.1 (1.8-2.4cm) PWd0.9 (0.7-1.1cm)LVDs3.1 (2.5-4.0cm) FS (%) 31.9 %SV56.6 ml LVEF(%)60.1 (>50%) Aortic Valve AoV Peak Jesus.124.6cm/sAoV VTI26.2cm AO Peak GR.6.2mmHgLVOT Peak Jesus.84.1cm/s LVOT VTI 22.16cmAO Mean GR.3mmHg KORIN (VMAX)1.44po5CVL (VTI)2.90cm2 AI P 1/2 [id number] Mitral Valve MV E Fthhawvr53.7cm/sMV DECEL [id number] MV A Snhkjogn99.9cm/sMV GRL84kk E/A Ratio1.0MVA (PHT)3.55cm2 TDI E/Lateral E'12.6E/Medial E'12.2 Pulmonary Valve PV Peak Qlfrzdqk91.2cm/sPV Peak Grad.2mmHg Tricuspid Valve TR P. Nmbaznjl805ev/sTR Peak Gr.21mmHg Pulmonary Vein PVa [id number] LEFT VENTRICLE The left ventricle is normal size. There is normal left ventricular wall thickness. The left ventricu lar systolic function is normal and the ejection fraction is within normal range. The Ejection Fracti on is 50-55%. There is normal LV segmental wall motion. Tissue Doppler imaging reveals mild left vent ricular diastolic dysfunction. RIGHT VENTRICLE The right ventricle is normal size. There is normal right ventricular wall thickness. The right ventr icular systolic function is normal. ATRIA The left atrium size is normal. The right atrium size is normal. The interatrial septum is intact wit h no evidence for an atrial septal defect or patent foramen ovale as noted on 2-D or Doppler imaging. AORTIC VALVE The aortic valve is normal in structure and function. Doppler and Color Flow revealed trace to mild e ccentric aortic regurgitation. There is no significant aortic valvular stenosis. Calculated aortic va lve area is 2.95 cm2 with maximum pressure gradient of 9 mmHg and mean pressure gradient of 5 mmHg. MITRAL VALVE The mitral valve is normal in structure and function. There is no evidence of mitral valve prolapse. There is no mitral valve stenosis. Doppler and Color-flow revealed trace mitral regurgitation. TRICUSPID VALVE The tricuspid valve is normal in structure and function. Doppler and Color Flow revealed trace to mil d tricuspid regurgitation with an estimated PAP of 31 mmHg. There is no tricuspid valve stenosis. PULMONIC VALVE The pulmonic valve is not well visualized. Doppler and Color Flow revealed trace pulmonic valvular re gurgitation. There is no pulmonic valvular stenosis. GREAT VESSELS The aortic root is normal in size. The ascending aorta is normal in size. The IVC is normal in size a nd collapses >50% with inspiration. PERICARDIAL EFFUSION There is no evidence of significant pericardial effusion. Critical Notification Critical Value: No <Conclusion> The left ventricular systolic function is normal and the ejection fraction is within normal range. Th e Ejection Fraction is 50-55%. There is normal LV segmental wall motion. Doppler and Color Flow revealed trace to mild eccentric aortic regurgitation. Doppler and Color Flow revealed trace to mild tricuspid regurgitation with an estimated PAP of 31 mmH g. Signed by : Marvin Baker, Electronically Approved : 01/23/2021 21:46:49
--- NOTE | 2021-01-23 22:49 | RAD ---
MR#: [id number] Date of Study: 01/23/2021 Ordering Physician: CARMEL CHAMPION, Referring Physician: LESLI FOX Tech: RT Jasmyne (R) (N) APPROVED REPORT Test Type: Pharmacological Stress Nurse/Tech: Hernando Ricks RN Test Indications: Dyspnea, Fatigue, Syncope Cardiac History: See EMR. Medications: See EMR. Medical History: CVA, COPD, See EMR. Resting ECG: SR Resting Heart Rate: 57 bpm Resting Blood Pressure: 144/77mmHg Pretest Chest Pain: No chest pain Nurse/Tech Notes Lungs coarse throughout, Heart tones regular. Consent: The procedure was explained to the patient in lay terms. Informed consent was witnessed. Rahul eout was entered into [employer]. History and Stress Test performed by ERIN Chadwick, DAPHNEY (R) (N) Pharm. Details Pharmacologic stress testing was performed using 0.4mg per 5ml of regadenoson given intravenously ove r 7-10 seconds. Stress Symptoms Dyspnea & Dizziness, resolved by the end of rest. POST EXERCISE Reason for Termination: Infusion complete Max HR: 98 bpm Max Blood Pressure: 152/61mmHg Blood Pressure response to exercise: Normal blood pressure response during stress. Heart Rate response to exercise: WNL Chest Pain: No. Arrhythmia: No. Frequent PVCs. ST Change: No. INTERPRETATION Stress EKG Conclusion: No evidence of stress induced EKG changes. Imaging Protocol IMAGE PROTOCOL: Rest Tc-99m/stress Tc-99m 1 day Rest: Stress: Viability: Radiopharm.Tc99m [id number] Sestamibi Dose10.1mCi 31mCi Duration 15min. 10min. Img Date 01/23/2021 01/23/2021 Inj-Img Pfgt23uam. 60min. Rest Admin Site:IV - Right AntecubitalAdministrator:RT Jasmyne (R)(N) Stress Admin Site: IV - Right AntecubitalAdministrator: ERIN Chadwick, DAPHNEY (R)(N) STRESS DATA End Diast. Vol.48.0mlAv. Heart Rate68.0bpm End Syst. Vol.11.0mlCO Index BSA0.0L/min Myocardial Mass91.0gEject. Qebskhui50.0% Stress Rates Pk. Fill Rate3.68EDV/secLVtime Pk. Fill 243.20msec Pk. Empty Rate5.50ESV/secLVtime Pk. Mkjfr817.92msec 1/3 Pk. Fill1.11EDV/sec Stress Scores Regional WT0.00Summed WT0.00 Regional WM0.00Summed WM0.00 The rest and stress images show normal perfusion, normal contraction and thickening. LV Perf. Quant 17 Seg. SSS0.00 17 Seg. SRS0.00 17 Seg. SDS0.00 Stress Defect Extent (% LAD)0.00Rest Defect Extent (% LAD)0.00Rev. Defect Extent (% LAD)0.00 Stress Defect Extent (% LCX) 0.00Rest Defect Extent (% LCX)5.00Rev. Defect Extent (% LCX)0.00 Stress Defect Extent (% RCA)0.00Rest Defect Extent (% RCA)0.00Rev. Defect Extent (% RCA)0.00 Stress Defect Extent (% RAJWINDER)0.00Rest Defect Extent (% RAJWINDER)0.90Rev. Defect Extent (% RAJWINDER)0.00 Other Information Quality:Average Risk Assessment: Low Risk Conclusion 1. No evidence of EKG changes with stress testing. 2. Normal perfusion at stress/rest. 3. Low risk study. 4. EF > 60%. Signed by : Marvin Baker, Electronically Approved : 01/23/2021 22:49:30
== END ==
LOC: ECHO 08:17
PROVIDERS: ATTEND Internal Medicine Cardiovascular Disease
DX: I08.2 Rheumatic disorders of both aortic and tricuspid valves (principal); R01.1 Cardiac murmur, unspecified
CPT/HCPCS: 78452; 93017; 93306; A9500; J2785